=== PATIENT | male | born 1950 | race Caucasian/White ===

== ENCOUNTER 2020-05-10 22:17 | Inpatient (IN) | payer OTHER, BC ==
--- OUTSIDE RECORDS SUMMARY | 2020-05-10 22:19 | XMS REPORT | Continuity of Care Document ---
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) Male Active Problem 03/07/2020 Medica l hypogonadism Group (disorder) 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) Morbid obesity Active Problem 03/07/2020 M edical (disorder) Group Medications No Data Provided for This Section Allergies, Adverse Reactions, Alerts Substance Category Reaction Severity Reaction Status Date Comments S ource type Reported sulfa drugs Assertion Drug Active allergy Medical Group iodine Assertion Drug Active allergy Medical Group Immunizations No Data Provided for This Section Results Order Name Results Value Reference Date Interpretation Comments Kiana rce Range ENDOCRINOLO Testosterone 242 250 - 827 03/04 Result GY Comment: In Medical hypogonadal Group males, Testosterone, Total, LC/MS/MS,
is the recommended assay due to the diminished<br/ >accuracy of immunoassay at levels below 250 ng/dL.
Thi s test code (74230) must be collected in a
red-top tube with no gel.

Lab test performed by:
[facility]
[address]
[facility] [place] [address]<br/ >Nuha Green SPECIAL PSA 0.8 < OR = 4.0 03/04 Result MH CHEMISTRY ng/mL Comment: The Medical total PSA Group value from this assay system is
standardi zed against the WHO standard. The test
result will be approximately 20% lower when compared
to the equimolar-hugo dardized total PSA ([place]). Comparison of serial PSA results should be
interpret ed with this fact in mind.

This test was performed using the Siemens
chemilumi nescent method. Values obtained from
different assay methods cannot be used
inter changeably. PSA levels, regardless of
value, should not be interpreted as absolute
e vidence of the presence or absence of disease.

Lab test performed by:
[facility]
[address] [place] [address]
[place] [address]<br/ >Nuha Green URINE AND POC UA Color Yellow Yellow 03/04 STOOL *NA* Medical (03/04/20 3:51 PM) Group URINE AND POC UA Clear Clear 03/04 STOOL Turbidity *NA* Medical (03/04/20 3:51 PM) Group URINE AND POC UA SG 1.015 <=1.030 03/04 MH STOOL Medical Group URINE AND POC UA pH 7.0 5.0 - 8.0 03/04 MH STOOL Medical Group URINE AND POC UA Prot Negative Negative 03/04 STOOL mg/dL mg/dL Medical Group URINE AND POC UA Glu Negative Negative 03/04 STOOL mg/dL mg/dL Medical Group URINE AND POC UA Ket Negative Negative 03/04 STOOL mg/dL mg/dL Medical Group URINE AND POC UA Bili Negative Negative 03/04 MH STOOL *NA* Medical (03/04/20 3:51 PM) Group URINE AND POC UA Bld Negative Negative 03/04 STOOL *NA* Medical (03/04/20 3:51 PM) Group URINE AND POC UA Uro 0.2 0.1 - 1.0 03/04 MH STOOL Medical Group URINE AND POC UA Nit Negative Negative 03/04 STOOL *NA* /2020 Medical (03/04/20 3:51 PM) Group URINE AND POC UA Negative Negative 03/04 STOOL LeukEst * Medical (03/04/20 3:51 PM) Group URINE AND POC UA Color Yellow Yellow 03/06 STOOL Medical (03/06/19 5:24 PM) Group URINE AND POC UA Clear Clear 03/06 STOOL Turbidity * Medical (03/06/19 5:24 PM) Group URINE AND POC UA SG 1.015 <=1.030 03/06 STOOL Medical Group URINE AND POC UA pH 7.0 5.0 - 8.0 03/06 STOOL Medical Group URINE AND POC UA Prot Negative Negative 03/06 STOOL mg/dL mg/dL Medical Group URINE AND POC UA Glu Negative Negative 03/06 STOOL mg/dL mg/dL Medical Group URINE AND POC UA Ket Negative Negative 03/06 STOOL mg/dL mg/dL Medical Group URINE AND POC UA Bili Negative Negative 03/06 STOOL * Medical (03/06/19 5:24 PM) Group URINE AND POC UA Bld Negative Negative 03/06 STOOL * Medical (03/06/19 5:24 PM) Group URINE AND POC UA Uro 0.2 0.1 - 1.0 03/06 STOOL Medical Group URINE AND POC UA Nit Negative Negative 03/06 STOOL * Medical (03/06/19 5:24 PM) Group URINE AND POC UA Negative Negative 03/06 STOOL LeukEst * Medical (03/06/19 5:24 PM) Group Pathology Reports No Data Provided for This Section Diagnostic Reports No Data Provided for This Section Consultation Notes No Data Provided for This Section Discharge Summaries No Data Provided for This Section History and Physicals No Data Provided for This Section Vital Signs Vital Sign Value Date Comments Source Systolic (mm Hg) 124 03/04/2020 Medical Group Diastolic (mm Hg) 80 03/04/2020 Medical Group Height 187.96 cm 03/04/2020 Medical Grou p Weight 98.892 03/04/2020 Medical Grou p BMI Calculated 27.99 03/04/2020 Medical Gr oup Height 183.64 cm 03/06/2019 Medical Grou p Weight 100.909 03/06/2019 Medical Grou p BMI Calculated 29.92 03/06/2019 Medical Gr oup Systolic (mm Hg) 140 03/06/2019 Medical Group Diastolic (mm Hg) 70 03/06/2019 Medical Group Height 185.42 cm 03/08/2018 Medical Grou p BMI Calculated 28.43 03/08/2018 Medical Gr oup Weight 97.727 03/08/2018 Medical Grou p Systolic (mm Hg) 110 03/08/2018 Medical Group Diastolic (mm Hg) 70 03/08/2018 Medical Group Encounters Location Location Encounter Encounter Reason Attending ADM MD Stat us Source Details Type Number For Provider Date Date Visit Outpatient [id number] PAM 01/12 [facility] [place] Outpatient [id number] 09/06 [facility] [place] Outpatient [id number] 02/28 [facility] [facility] [id number] 03/08 [facility] Outpatient [id number] 03/08 [facility] Outpatient [id number] 03/06 [facility] Outpatient [id number] 03/06 [facility] Outpatient [id number] 03/04 [facility] Outpatient [id number] Pam 03/04 03/05 [facility] Outpatient [id number] 03/03 [facility] [place] Procedures Procedure Code Date Perfomer [place] [address] 03/04/2020 Medical post-voiding residual Arnav up urine and/or bladder capacity by ultrasound, non-imaging Colonoscopy<sup>1</paredes [id number] 03/06/2016 normal per Medical p> pt. Group Excision of melanoma [id number] M edical Group Right heart [id number] Medical catheterization Group Assessment and Plan No Data Provided for This Section Plan of Care No Data Provided for This Section Social History Social History Date Source Social History TypeResponse 03/04/2020 Medical G mitch Smoking Status Never smoker; Exposure to Tobacco Smoke None; Cigarette Smoking Last 365 Days No; Reg Smoking Cessation Counseling No entered on: 03/04/20 Family History No Data Provided for This Section Advance Directives No Data Provided for This Section Functional Status No Data Provided for This Section
--- OUTSIDE RECORDS SUMMARY | 2020-05-10 22:19 | XMS REPORT | Summary of Care ---
:1950 Author Organization [facility] Address [address] [place] [address]- Encounter HQ Tiffani_qiana(BERNARDO) [id number] Date(s): 03/04/20 - 03/04/20 [facility] [address] [place], [place] [address]- [phone] Discharge Disposition: Home or Self Care Attending Physician: Keenan Orosco MD Referring Physician: Keenan Orosco MD Vital Signs Most recent to oldest [Reference Range]: 1 Height 187.96 cm (03/04/20 3:54 PM) Blood Pressure [90-140/60-90 mmHg] 124/80 mmHg (03/04/20 3:54 PM) Weight 98.892 kg (03/04/20 3:54 PM) Body Mass Index 27.99 m2 (03/04/20 3:54 PM) Problem List Condition Effective Dates Status Health Status Informant Frozen shoulder(Confirmed) Resolved BPH with urinary Active obstruction(Confirmed) Follow up(Confirmed) Active High blood pressure(Confirmed) Resolved Erectile dysfunction(Confirmed) Active Male hypogonadism(Confirmed) Active Cancer(Confirmed) Resolved Morbid obesity(Confirmed) Active Allergies, Adverse Reactions, Alerts Substance Reaction Severity Status sulfa drugs Active iodine Active Medications No Known Medications Results Most recent to oldest [Reference Range]: 1 PSA [< OR = 4.0 ng/mL] 0.8 ng/mL 1 *N* (03/04/20 4:36 PM) Testosterone Tot [250-827 ng/dL] 242 ng/dL 2 *LOW* (03/04/20 4:36 PM) POC UA Bili [Negative] Negative *NA* (03/04/20 3:51 PM) POC UA Bld [Negative] Negative *NA* (03/04/20 3:51 PM) POC UA Color [Yellow] Yellow *NA* (03/04/20 3:51 PM) POC UA Glu [Negative mg/dL] Negative mg/dL *NA* (03/04/20 3:51 PM) POC UA Ket [Negative mg/dL] Negative mg/dL *NA* (03/04/20 3:51 PM) POC UA LeukEst [Negative] Negative *NA* (03/04/20 3:51 PM) POC UA Nit [Negative] Negative *NA* (03/04/20 3:51 PM) POC UA pH [5.0-8.0] 7.0 (03/04/20 3:51 PM) POC UA Prot [Negative mg/dL] Negative mg/dL *NA* (03/04/20 3:51 PM) POC UA SG [<=1.030] 1.015 (03/04/20 3:51 PM) POC UA Turbidity [Clear] Clear *NA* (03/04/20 3:51 PM) POC UA Uro [0.1-1.0 EU/dL] 0.2 EU/dL (03/04/20 3:51 PM) 1Result Comment: The total PSA value from this assay system is standardized against the WHO standard. The test result will be approximately 20% lower when compared to the equimolar-standardized total PSA ([place]). Comparison of serial PSA results should be interpreted with this fact in mind. This test was performed using the Siemens chemiluminescent method. Values obtained from different assay methods cannot be used interchangeably. PSA levels, regardless of value, should not be interpreted as absolute evidence of the presence or absence of disease. Lab test performed by: [facility] [address] [place] [address] Nuha Green2Result Comment: In hypogonadal males, Testosterone, Total, LC/MS/MS, is the recommended assay due to the diminished accuracy of immunoassay at levels below 250 ng/dL. This test code (43633) must be collected in a red-top tube with no gel. Lab test performed by: [facility] [address] [place] [address] Nuha Green Immunizations No data available for this section Procedures Procedure Date Related Diagnosis Body Site Status Measurement of post-voiding residual 03/04/20 Completed urine and/or bladder capacity by ultrasound, non-imaging Colonoscopy1 03/06/16 Completed Excision of melanoma Complet ed Right heart catheterization Completed 1normal per pt. Social History Social History Type Response Smoking Status Never smoker; Exposure to To bacco Smoke None; Cigarette Smoking Last 365 Days No; Reg Smoking Cessation Counseling No entered on: 03/04/20 Assessment and Plan No data available for this section
--- OUTSIDE RECORDS SUMMARY | 2020-05-10 22:20 | XMS REPORT | Continuity of Care Document ---
:1950 Author Organization [facility] Address [address] [place] [address] Care Team Providers Name Role Phone Henrique Orosco Attending Clinician Payers Payer Name Policy Type Policy Number Effective Date Expiration Date S ource Problems Condition Condition Condition Status Onset Resolution Last Treating Co mments Source Name Details Category Date Date Treatment Clinician Date Adhesive Problem Resolve 2020-03-07 Me moria capsulitis d 00:54:23 l of Adhesive Jake n shoulder capsulitis (disorder) of shoulder (disorder) Resolved Problem 03/07/2020 Medical Group Hypertensi Problem Resolve 2020-03-07 Memoria ve d 00:54:23 l disorder, [facility] systemic Hypertensi arterial ve (disorder) disorder, systemic arterial (disorder) Resolved Problem 03/07/2020 Medical Group Malignant Problem Resolve 2020-03-07 M emoria neoplastic d 00:54:23 l disease Rickman (disorder) Malignant neoplastic disease (disorder) Resolved Problem 03/07/2020 Medical Group Benign Problem Active 2020-03-07 Memor ia prostatic 00:54:23 l hypertroph Benign Herm magaly with prostatic outflow hypertroph obstructio with n outflow (disorder) obstructio n (disorder) Active Problem 03/07/2020 Medical Group Follow-up Problem Active 2020-03-07 Me moria status 00:54:23 l (finding) Thad Follow-up status (finding) Active Problem 03/07/2020 [facility] Group Impotence Problem Active 2020-03-07 Me moria of organic 00:54:23 l origin Rickman (disorder) Impotence of organic origin (disorder) Active Problem 03/07/2020 Medical Group Male Problem Active 2020-03-07 Memor ia hypogonadi 00:54:23 l sm Male Rickman (disorder) hypogonadi sm (disorder) Active Problem 03/07/2020 Medical Group Morbid Problem Active 2020-03-07 Memor ia obesity 00:54:23 l (disorder) Morbid Herm magaly obesity (disorder) Active Problem 03/07/2020 Medical Group Allergies, Adverse Reactions, Alerts Allergy Allergy Status Severity Reaction(s) Onset Inactive Treating Comm ents Source Name Type Date Date Clinician IODINE DA Active U 2001-0 [facility] 00:[facility]: [address] IODINE DA Active U 2001-0 [facility]14 [facility] 00:00: [address] No Known DA Active U 2001-0 [facility] Other 09[facility]14 [facility] Allergie 00:00: [address] SHRIMP DA Active U 2001-0 [facility] -[facility] [place] 00:00: [address] SULFA DA Active U 2001-0 [facility] DRUGS [facility]14 [facility] 00:00: [address] sulfa sulfa Active Memoria drugs drugs l [place] iodine iodine Active Memoria l Thad Social History Smoking Status Start Date Stop Date Source Social History [facility] Medications This patient has no known medications. Vital Signs Vital Name Observation Time Observation Value Comments Source Systolic (mm Hg) 2020-03-04 21:54:00 Livan rial [place] Diastolic (mm Hg) 2020-03-04 21:54:00 Mem orial [place] Height 2020-03-04 21:54:00 187.96 cm [facility] Weight 2020-03-04 21:54:00 [facility] BMI Calculated 2020-03-04 21:54:00 Memori al Thad Height 2019-03-06 19:04:00 183.64 cm [facility] Weight 2019-03-06 19:04:00 [facility] BMI Calculated 2019-03-06 19:04:00 Memori al Thad Systolic (mm Hg) 2019-03-06 19:04:00 Livan rial Thad Diastolic (mm Hg) 2019-03-06 19:04:00 Mem orial [place] Height 2018-03-08 22:03:00 185.42 cm [facility] BMI Calculated 2018-03-08 22:03:00 Memori al [place] Weight 2018-03-08 22:03:00 [facility] Systolic (mm Hg) 2018-03-08 22:03:00 Livan ewing Thad Diastolic (mm Hg) 2018-03-08 22:03:00 Mem orial Thad Procedures Procedure Date / Time Performing Clinician Source Performed Measurement of post-voiding 2020-03-04 21:49:00 [facility] Thad residual urine and/or bladder capacity by ultrasound, non-imaging Colonoscopy<sup>1</sup> 2016-03-06 05:00:00 Livansamuel ewing Thad Excision of melanoma [facility] rmann Right heart catheterization Livansamuel ewing Thad Encounters Start End Encounter Admission Attending Care Care Encounter Source Date/Time Date/Time Type Type Clinicians Facility Department ID 2020-03-04 2020-03-04 [address] C Orosco [facility] [id number] 15:15:00 23:59:59 Keenan Duenas 05 2019-03-06 2019-03-06 Outpatient Ana Luisa [facility] [id number] 15:15:00 23:59:59 Keenan Duenas 04 2018-03-08 2018-03-08 Outpatient Ana Luisa [facility] [id number] 15:30:00 23:59:59 Keenan Duenas 03 Results Test Description Test Time Test Comments Results Result Sourc e Comments ENDOCRINOLOGY 2020-03-04 242 [facility] 22:36:00 [place] SPECIAL CHEMISTRY 2020-03-04 0.8 Memoria l 22:36:00 [place] URINE AND STOOL 2020-03-04 Yellow [facility] 21:51:00 *NA*(03/04/20 Rickman 3:51 PM) URINE AND STOOL 2020-03-04 Clear [facility] 21:51:00 *NA*(03/04/20 Thad 3:51 PM) URINE AND STOOL 2020-03-04 21:51:00 Test Item Value Reference Range Interpretation Comme nts POC UA SG (test code = POC UA SG) 1.015 1 [facility] HermannURINE AND [id number] 21:51:00 Test Item Value Reference Range Interpretation Comments POC UA pH (test code = POC UA pH) 7.0 1 5.0-8.0 [facility] [id number] 21:51:00Negative *NA*(03/04/20 3:51 PM) [facility] [id number] 21:51:00Negative *NA*(03/04/20 3:51 PM) [facility] [id number] 21:51:000.2[facility] [id number] 21:51:00Negative *NA*(03/04/20 3:51 PM)[facility] [id number] 21:51:00Negative *NA*(03/04/20 3:51 PM)[facility] CT MAXIFAC W/O [id number] 16:29:00 Patient Name: NUHA ZUÑIGA JR Unit No: [id number] EXAMS: CPT CODE: [id number] CT MAXIFAC W/O CONTRAST 28649 Location: T 18 CT of the sinuses, 05/20/19 TECHNIQUE: CT examination of the sinuses was performed obtaining 0.63 mm axial images on a helical scanner without IV contrast. Both coronal and sagittal 2D reformatted images acquired on the CT workstation using MPR software. Scanning conducted in the axial plane contiguously from above frontal sinuses through oropharynx . The examination was performed on an updated helical CT scanning using low-dose radiation technique. Automatic exposure control technique was utilized to reduce radiation dose. CLINICAL HISTORY: Acute recurrent pansinusitis. COMPARISON EXAMS: None of the sinuses FINDINGS: FRONTAL SINUSES: Hyperplasia is seen with aeration of the rei kem. There is a small degree ofopacification in the left frontal sinus seen on image #110 and 109 of series 2.. There is also a small degree in the right frontal sinus on image #102 through 104 on series 2. Patency ofboth frontal ethmoidal recesses. ETHMOID AIR CELLS: Normal development is identified with very small degree of opacification right anterior chamber. There is also a small degree all of opacification having a bubbly appearance of both posterior chambers. This is best seen on image #85 of series 2. It is noted left more so than right. The fovea ethmoidalis is intact. The sphenoethmoidal recesses are patent. MAXILLARY SINUSES: Normal development is seen without significant opacification. Do not see any compromise of either leg. SPHENOID SINUSES: Hyperplasia is seen with aeration of the right optic strut . No significant opacification. Nasal cavity/nasopharyngeal region: Do not see any compromise in drainage of the nasal cavity. The nasal septum is midline. No abnormality is seen in the nasopharyngeal region. IMPRESSION: MEME Palumbo NAME: NUHA ZUÑIGA JR [id number] PHYS: BRIANNA. [place] [address] : 1950 AGE: 69 SEX: M LOC: JUDY PHONE #: [phone] EXAM DATE: 05/20/2019 STATUS: REG CLI FAX#: [phone] RAD #: [id number] D/C DT PAGE 1Signed Report (CONTINUED) Patient Name: NUHA ZUÑIGA JR Unit No: [id number] EXAMS: CPT CODE: [id number] CT MAXIFAC W/O CONTRAST 24727 <Continued> Small degree of ethmoid air cell opacification identified and involving both frontal sinuses posteriorly and inferiorly with patency of the frontal and sphenoethmoidal recesses No aggressive bony destruction. No compromise of the ostiomeatal units No significant compromise in terms of drainage of the nasal cavity at 1629 Reported and signed by: Josette Crystal MD CC: Stuart Blackburn Technologist: Colin Staton; Bernarda Ruiz, RT(R) CTDI: DLP: Trnscrpt: 05/20/2019 (1629) [email or web address] [facility] NAME: NUHA ZUÑIGA JR [id number] PHYS: BRIANNA. [place] [address] : 1950 AGE: 69 SEX: M LOC: JUDY PHONE #: [phone] EXAM DATE: 05/20/2019 STATUS: REG CLI FAX #: [phone] RAD #: [id number] D/C DT PAGE 2 Signed Report Patient Name: NUHA ZUÑIGA JR Unit No: [id number] EXAMS: CPT CODE: [id number] CT MAXIFAC W/OCONTRAST 99245 <Continued> Orig Print D/T: S: 05/20/2019 (1632) [facility] NAME: NUHA ZUÑIGA JR [id number] [address] PHYS: BRIANNA.Sue - [place] [address] : 1950 AGE: 69 SEX: M LOC: JUDY PHONE #: [phone] EXAM DATE: 05/20/2019 STATUS: REG CLI FAX #: [phone] RAD #: [id number] D/C DT PAGE 3 Signed ReportURINE AND [id number] 23:24:00Yellow *NA*(03/06/19 5:24 PM)[facility] [id number] 23:24:00Clear *NA*(03/06/19 5:24 PM)[facility] [id number] 23:24:00 Test Item Value Reference Range Interpretation Comments POC UA SG (test code = POC UA SG) 1.015 1 [facility] [id number] 23:24:00 Test Item Value Reference Range Interpretation Comments POC UA pH (test code = POC UA pH) 7.0 1 5.0-8.0 [facility] [id number] 23:24:00Negative *NA*(03/06/19 5:24 PM) [facility] [id number] 23:24:00Negative *NA*(03/06/19 5:24 PM) [facility] [id number] 23:24:000.2[facility] [id number] 23:24:00Negative *NA*(03/06/19 5:24 PM)[facility] [id number] 23:24:00Negative *NA*(03/06/19 5:24 PM)[facility]- XR CHEST 2 [id number] 18:44:00 Patient Name: NUHA ZUÑIGA JR Unit No: [id number] EXAMS: CPT CODE: [id number] XR CHEST 2 V 05254 Location: H28 EXAM: - XR CHEST 2 V HISTORY: PNEUM ONIA, COUGH, WHEEZING COMPARISON: None FINDINGS: Calcifiedgranulomas in the upper lobes. Lungs are otherwise clear. No pleural effusion or pneumothorax. The cardiac silhouette is within normal limits. No acute osseous abnormalities. IMPRESSION: No radiographic evidence of acute cardiopulmonary abnormality. at 1844 Reported and signed by: Marlon Sparks CC: Stuart Blackburn Technologist: Lesley Kaur (RT) Transcrpt Date/Tm/Trnsp: 11/13/2018 (184) [email or web address] Orig Print D/T: S: 11/13/2018 (1846) [facility] [place] NAME: NUHA ZUÑIGA JR [id number] [address] PHYS: BRIANNA. [place] [address] : 1950 AGE: 68 SEX: M LOC: [facility] PHONE #: [phone] EXAM DATE: 11/13/2018 STATUS: REG CLI FAX #: [phone] RADIOLOGY NO: PAGE 1 Signed Report- XR CHEST 2 [id number] 18:44:00 Patient Name: NUHA ZUÑIGA Unit No: [id number] EXAMS: CPT CODE: [id number] XR CHEST 2 V 99955 Location: H28 EXAM: - XR CHEST 2 V HISTORY: PNEUMONIA, COUGH, WHEEZING COMPARISON: None FINDINGS: Calcifiedgranulomas in the upper lobes. Lungs are otherwise clear. No pleural effusion or pneumothorax. The cardiac silhouette is within normal limits. No acute osseous abnormalities. IMPRESSION: No radiographic evidence of acute cardiopulmonary abnormality. at 1844 Reported and signed by: Marlon Sparks CC: Stuart Blackburn Technologist: Lesley Kaur (RT) Transcrpt Date/Tm/Trnsp: 11/13/2018 (184) [email or web address] Orig Print D/T: S: 11/13/2018 (1846) [facility] [place] NAME: NUHA ZUÑIGA [id number] [address] PHYS: BRIANNA. [place] [address] : 1950 AGE: 68 SEX: M LOC: BEV PHONE #: [phone] EXAM DATE: 11/13/2018 STATUS: LEEANNA CANAS FAX #: [phone] RADIOLOGY NO: [id number] PAGE 1 Signed Report
[2020-05-10] MEDS ORDERED: ONDANSETRON 4 MG/2 ML VIAL ONE (23:50)
[2020-05-10] MEDS ORDERED: MORPHINE 2 MG/ML SYR ONE (23:50)
[2020-05-11 00:22] LABS: Basophils % 1.3 % (0-1.3); Lymphocytes % 16.1 % (15.3-44.8); MPV 8.2 fL (7.6-11.3); RBC Red Blood Cell Count 4.77 M/uL (4.33-5.43)
[2020-05-11 00:26] LABS: Protime INR 1.19
[2020-05-11 00:36] LABS: Albumin 3.8 g/dL (3.4-5.0); Bilirubin Direct 0.2 mg/dL (0-0.2); Bilirubin Total 0.8 mg/dL (0.2-1.0); Potassium 3.8 mmol/L (3.5-5.1); Protein, Total 7.4 g/dL (6.4-8.2)
--- NOTE | 2020-05-11 01:22 | ER ---
Nurse's Notes [facility] Name: Ariel Albrecht Jr Age: 70 yrs Sex: Male : 1950 Arrival Date: 05/10/2020 Time: 22:21 Bed 20 Private MD: Diagnosis: Right Lower Extremity Cellulitis-Failed Outpatient Treatment Presentation: 05/10 22:44 Chief complaint: Patient states: Had a fall on 05/02/20, large abrasions to right lower lp1 leg; being treated with Keflex and Mupirocin ointment by PCP; Reports pain and redness to site increasing; Denies fever. Coronavirus screen: Client denies travel out of the [place] in the last 14 days. At this time, the client does not indicate any symptoms associated with coronavirus-19. Ebola Screen: No symptoms or risks identified at this time. Risk Assessment: Do you want to hurt yourself or someone else? Patient reports no desire to harm self or others. Onset of symptoms was May 10, 2020. 22:44 Method Of Arrival: Ambulatory lp1 22:44 Acuity: [place] 3 lp1 22:44 Initial Sepsis Screen: Does the patient meet any 2 criteria? No. Patient's initial lp1 sepsis screen is negative. Does the patient have a suspected source of infection? No. Patient's initial sepsis screen is negative. Historical: - Allergies: 22:49 Iodine; lp1 - Home Meds: 22:57 Diovan HCT 80-12.5 mg Oral tab 1 tab once daily [Active]; Norvasc 2.5 mg Oral tab 1 tab lp1 once daily [Active]; Doxycycline Oral [Active]; atorvastatin 10 mg oral tab 1 tab once daily [Active]; - PMHx: 22:49 Blephritis; Skin cancer on nose- receiving treatment; lp1 - PSHx: 22:49 None; lp1 - Immunization history:: Adult Immunizations up to date. - Social history:: Smoking status: Patient denies any tobacco usage or history of. Screenin:58 Abuse screen: Denies threats or abuse. Denies injuries from another. Nutritional lp1 screening: No deficits noted. Tuberculosis screening: No symptoms or risk factors identified. Fall Risk None identified. Assessment: 23:10 General: Appears in no apparent distress. comfortable, Behavior is calm, cooperative, rr5 appropriate for age. Pain: Complains of pain in right evans Pain radiates to right leg Quality of pain is described as aching, Pain began gradually, Is intermittent. Neuro: Level of Consciousness is awake, alert, obeys commands, Oriented to person, place, time, situation. Cardiovascular: Capillary refill < 3 seconds Patient's skin is warm and dry. Respiratory: Airway is patent Respiratory effort is even, unlabored, Respiratory pattern is regular, symmetrical. GI: No signs and/or symptoms were reported involving the gastrointestinal system. : No signs and/or symptoms were reported regarding the genitourinary system. EENT: No signs and/or symptoms were reported regarding the EENT system. Derm: Skin is healthy with good turgor, Skin temperature is warm Wound noted right evans Wound is dry yellowish discharge redness around the wound and war warm to touch noted. 23:10 Musculoskeletal: Capillary refill < 3 seconds. rr5 Vital Signs: 22:44 BP 163 / 73; Pulse 73; Resp 18; Temp 98.6(TE); Pulse Ox 100% on R/A; Weight 99.34 kg lp1 (R); Height 6 ft. 3 in. (190.50 cm); Pain 4/10; 22:44 Body Mass Index 27.37 (99.34 kg, 190.50 cm) lp1 ED Course: 22:21 Patient arrived in ED. cf2 22:47 Triage completed. lp1 22:50 Arm band placed on right wrist. lp1 22:54 Navid Joy, RN is Primary Nurse. rr5 23:13 Patient has correct armband on for positive identification. Placed in gown. Bed in low rr5 position. Call light in reach. Pulse ox on. NIBP on. 23:14 Kevin Adams MD is Attending Physician. mh7 23:50 Inserted saline lock: 20 gauge in right hand, using aseptic technique. Blood collected. rr5 23:52 Tib Fib Right XRAY In Process Unspecified. EDMS 05/11 01:20 Shanae Hirsch MD is Hospitalizing Provider. mh7 Administered Medications: 05/09 23:50 Drug: Zofran (Ondansetron) 4 mg Route: IVP; Site: right hand; rr5 05/10 23:52 Drug: morphine 2 mg {Note: rass 0.} Route: IVP; Site: right hand; rr5 05/11 02:19 Drug: vancoMYCIN 1 grams Route: IVPB; Infused Over: 2 hrs; Site: right hand; lp1 Outcome: 01:22 Decision to Hospitalize by Provider. [facility] 16:13 Patient left the ED. ph Signatures: Dispatcher [employer] EDMS Veronika Torres RN RN lp1 Nisa Cueva RN RN Navid Joy RN RN rr5 Thuy Salamanca 2 Kevin Adams MD MD 7 Corrections: (The following items were deleted from the chart) 05/10 22:50 22:44 BP 163 / 73; Pulse 73bpm; Resp 18bpm; Pulse Ox 100% RA; Temp 98.6F Temporal; Pain lp1 08/08; lp1
--- NOTE | 2020-05-11 01:23 | EDPHYS ---
Physician Documentation [facility] Name: Ariel Albrecht Jr Age: 70 yrs Sex: Male : 1950 Arrival Date: 05/10/2020 Time: 22:21 Bed 20 Private MD: ED Physician Kevin Adams HPI: 05/10 23:26 This 70 yrs old Male presents to ER via Ambulatory with complaints of leg mh7 infected. 23:26 The patient presents with an injury. mh7 23:27 The patient presents with cellulitis of the right evans. Description: erythematous, mh7 warm. Onset: The symptoms/episode began/occurred 1 week(s) ago. Possible cause(s): Accidentally scraped leg against furniture during a fall. Associated signs and symptoms: Pertinent positives: erythema, swelling, Pain, Pertinent negatives: discharge, drainage, foreign body sensation, fever, headache, nausea, shortness of breath, vomiting. Modifying factors: the symptoms are alleviated by nothing, the symptoms are aggravated by nothing. Severity of symptoms: At their worst the symptoms were moderate, yesterday, in the emergency department the symptoms are unchanged. Patient has been taking Keflex for 5 days but getting worse.. Historical: - Allergies: 22:49 Iodine; lp1 - Home Meds: 22:57 Diovan HCT 80-12.5 mg Oral tab 1 tab once daily [Active]; Norvasc 2.5 mg Oral tab 1 tab lp1 once daily [Active]; Doxycycline Oral [Active]; atorvastatin 10 mg oral tab 1 tab once daily [Active]; - PMHx: 22:49 Blephritis; Skin cancer on nose- receiving treatment; lp1 - PSHx: 22:49 None; lp1 - Immunization history:: Adult Immunizations up to date. - Social history:: Smoking status: Patient denies any tobacco usage or history of. ROS: 23:27 Constitutional: Negative for fever, chills, and weight loss, Eyes: Negative for injury, mh7 pain, redness, and discharge, ENT: Negative for injury, pain, and discharge, Neck: Negative for injury, pain, and swelling, Cardiovascular: Negative for chest pain, palpitations, and edema, Respiratory: Negative for shortness of breath, cough, wheezing, and pleuritic chest pain, Abdomen/GI: Negative for abdominal pain, nausea, vomiting, diarrhea, and constipation, Back: Negative for injury and pain, : Negative for injury, bleeding, discharge, and swelling, Neuro: Negative for headache, weakness, numbness, tingling, and seizure, Psych: Negative for depression, anxiety, suicide ideation, homicidal ideation, and hallucinations, Allergy/Immunology: Negative for hives, rash, and allergies, Endocrine: Negative for neck swelling, polydipsia, polyuria, polyphagia, and marked weight changes, Hematologic/Lymphatic: Negative for swollen nodes, abnormal bleeding, and unusual bruising. Exam: 23:27 Constitutional: This is a well developed, well nourished patient who is awake, alert, mh7 and in no acute distress. Head/Face: Normocephalic, atraumatic. Eyes: Pupils equal round and reactive to light, extra-ocular motions intact. Lids and lashes normal. Conjunctiva and sclera are non-icteric and not injected. Cornea within normal limits. Periorbital areas with no swelling, redness, or edema. Neck: Trachea midline, no thyromegaly or masses palpated, and no cervical lymphadenopathy. Supple, full range of motion without nuchal rigidity, or vertebral point tenderness. No Meningismus. Chest/axilla: Normal chest wall appearance and motion. Nontender with no deformity. No lesions are appreciated. Cardiovascular: Regular rate and rhythm with a normal S1 and S2. No gallops, murmurs, or rubs. Normal PMI, no JVD. No pulse deficits. Respiratory: Lungs have equal breath sounds bilaterally, clear to auscultation and percussion. No rales, rhonchi or wheezes noted. No increased work of breathing, no retractions or nasal flaring. Abdomen/GI: Soft, non-tender, with normal bowel sounds. No distension or tympany. No guarding or rebound. No evidence of tenderness throughout. Back: No spinal tenderness. No costovertebral tenderness. Full range of motion. 23:27 Neuro: Awake and alert, GCS 15, oriented to person, place, time, and situation. Cranial nerves II-XII grossly intact. Motor strength 5/5 in all extremities. Sensory grossly intact. Cerebellar exam normal. Normal gait. Psych: Awake, alert, with orientation to person, place and time. Behavior, mood, and affect are within normal limits. 23:27 Musculoskeletal/extremity: Extremities: noted in the right evans: erythema, swelling, tenderness, ulcerated wound, ROM: intact in all extremities, Circulation is intact in all extremities. Pulses: are normal with no appreciated deficits, Perfusion: the patient is normally perfused throughout, Perfusion: the extremity is normally perfused throughout, Calf tenderness, is absent, Edema, is not appreciated, Sensation intact. Compartment Syndrome exam of affected extremity: is normal. no numbness, no tingling, no sensation deficit, no palor, no weak pulses, Joints: All joints appear normal with full range of motion. Weight bearing: able to fully bear weight, without difficulty, Tendon exam: specific tendon testing normal through active and passive range of motion Calves: are non-tender, have equal circumference. 23:27 Skin: cellulitis, that is moderate, confluent, on the right evans, injury, ulcerated wound. Vital Signs: 22:44 BP 163 / 73; Pulse 73; Resp 18; Temp 98.6(TE); Pulse Ox 100% on R/A; Weight 99.34 kg lp1 (R); Height 6 ft. 3 in. (190.50 cm); Pain 4/10; 22:44 Body Mass Index 27.37 (99.34 kg, 190.50 cm) lp1 MDM: 05/11 01:19 Differential diagnosis: abscess, cellulitis, Wound Infection. Data reviewed: vital [facility] signs, nurses notes, lab test result(s), CBC, electrolytes, urinalysis, radiologic studies, plain films. Data interpreted: Pulse oximetry: on room air is 100 %. Interpretation: normal. Counseling: I had a detailed discussion with the patient and/or guardian regarding: the historical points, exam findings, and any diagnostic results supporting the discharge/admit diagnosis, the presence of at least one elevated blood pressure reading (>120/80) during this emergency department visit, lab results, radiology results, the need for further work-up and treatment in the hospital. Response to treatment: the patient's symptoms have mildly improved after treatment. 01:22 Patient medically screened. [facility] 05/10 23:24 Order name: CBC with Diff; Complete Time: 00:58 [facility] 05/10 23:24 Order name: Basic Metabolic Panel; Complete Time: 00:58 [facility] 05/10 23:24 Order name: LFT's; Complete Time: 00:58 [facility] 05/10 23:24 Order name: Protime (+inr); Complete Time: 00:58 [facility] 05/10 23:24 Order name: Ptt, Activated; Complete Time: 00:58 [facility] 05/10 23:24 Order name: Blood Culture Adult (2) [facility] 05/10 23:24 Order name: Tib Fib Right XRAY [facility] 05/11 00:58 Order name: Lactate [facility] 05/11 00:58 Order name: Procalcitonin [facility] 05/11 01:44 Order name: COVID-19 [facility] 05/11 03:55 Order name: SARS-COV-2 RT PCR [facility] 05/11 11:14 Order name: US [facility] 05/11 00:00 Order name: IV Saline Lock; Complete Time: 00:01 rr5 Administered Medications: 05/09 23:50 Drug: Zofran (Ondansetron) 4 mg Route: IVP; Site: right hand; 5 05/10 23:52 Drug: morphine 2 mg {Note: rass 0.} Route: IVP; Site: right hand; 5 05/11 02:19 Drug: vancoMYCIN 1 grams Route: IVPB; Infused Over: 2 hrs; Site: right hand; lp1 Disposition: 05/11/20 01:22 Hospitalization ordered by Shanae Hirsch for Observation. Preliminary diagnosis is Right Lower Extremity Cellulitis-Failed Outpatient Treatment. - Bed requested for Telemetry/MedSurg (observation). - Status is Observation. ph - Condition is Stable. - Problem is an ongoing problem. - Symptoms have improved. Signatures: Dispatcher [employer] EDMD Arabella Clements Laura, RN RN lp1 Yno Dunlap, SUPERVISOR GROWER-C SUPERVISOR GROWER-Cla1 Nisa Cueva RN RN Loyda Martini, Navid Gonzalez RN, RN RN rr5 Kevin Adams MD MD 7 Corrections: (The following items were deleted from the chart) 02:03 01:22 Hospitalization Ordered by Shanae Hirsch MD for Observation. Preliminary [facility] diagnosis is Right Lower Extremity Cellulitis-Failed Outpatient Treatment. Bed requested for Telemetry/MedSurg (observation). Status is Observation. Condition is Stable. Problem is an ongoing problem. Symptoms have improved. [facility] 02:22 02:03 05/11/2020 01:22 Hospitalization Ordered by Shanae Hirsch MD for Observation. cg Preliminary diagnosis is Right Lower Extremity Cellulitis-Failed Outpatient Treatment. Bed requested for Telemetry/MedSurg (Inpatient). Status is Observation. Condition is Stable. Problem is an ongoing problem. Symptoms have improved. mh7 02:30 01:45 CORONAVIRUS ordered. EDMS EDMS 13:52 02:22 05/11/2020 01:22 Hospitalization Ordered by Shanae Hirsch MD for Observation. bd Preliminary diagnosis is Right Lower Extremity Cellulitis-Failed Outpatient Treatment. Bed requested for [facility] ER HOLD. Status is Observation. Condition is Stable. Problem is an ongoing problem. Symptoms have improved. cg 16:13 13:52 05/11/2020 01:22 Hospitalization Ordered by Shanae Hirsch MD for Observation. ph Preliminary diagnosis is Right Lower Extremity Cellulitis-Failed Outpatient Treatment. Bed requested for Telemetry/MedSurg (observation). Status is Observation. Condition is Stable. Problem is an ongoing problem. Symptoms have improved. bd
[2020-05-11] MEDS ORDERED: CEFEPIME/SWI 1gm 10 ML ONE ×2 (02:12→20:48)
[2020-05-11] MEDS ORDERED: VANCOMYCIN 1 GM/VIAL ONE (02:12)
[2020-05-11] MEDS ORDERED: NA CHLORIDE 0.9% 500 ML ONE (02:12)
--- NOTE | 2020-05-11 03:31 | P.HP ---
Certification for Inpatient Patient admitted to: Inpatient With expected LOS: >2 Midnights Patient will require the following post-hospital care: None Practitioner: I am a practitioner with admitting privileges, knowledge of patient current condition, hospital course, and medical plan of care. Services: Services provided to patient in accordance with Admission requirements found in Title 42 Section 412.3 of the Code of Federal Regulations <Yon Dunlap - Last Filed: 05/11/20 03:26> Patient History Date of Service: 05/11/20 Primary Care Provider: GRISELDA Reason for admission: Cellulitis right lower extremity History of Present Illness: 70-year-old male with history of hypertension, hyperlipidemia presents to the emergency department for cellulitis of the right lower extremity. Patient reports that it started out as an abrasion approximately 8 days prior and he has been taking Keflex at home. Patient reports that redness and inflammation getting worse rather than better at home and therefore presented to the emergency department. Patient was evaluated in the emergency department, labs remarkable x-ray of right lower extremity unremarkable, moderately large area of cellulitis to the right lower extremity with erythema, warmth noted. Patient also has history of skin cancer affecting his nose, currently receiving radiation treatment 5 days a week. - Past Medical/Surgical History -: Hypertension -: Hyperlipidemia -: Skin cancer Psychosocial/ Personal History: Patient is retired, lives with family - Family History Family History: Reviewed- Non-Contributory - Social History Smoking Status: Never smoker Alcohol use: No CD- Drugs: No Caffeine use: Yes Place of Residence: Home <Yon Dunlap - Last Filed: 05/11/20 03:26> Date of Service: 05/11/20 <Shanae Hirsch - Last Filed: 05/20/20 02:17> Review of Systems 10-point ROS is otherwise unremarkable Integumentary: Rash, As per HPI <Yon Dunlap - Last Filed: 05/11/20 03:26> Physical Examination - Physical Exam General: Alert, In no apparent distress HEENT: Atraumatic, PERRLA, Mucous membr. moist/pink Neck: Supple, 2+ carotid pulse no bruit, No LAD Respiratory: Clear to auscultation bilaterally, Normal air movement Cardiovascular: Regular rate/rhythm, Normal S1 S2 Gastrointestinal: Normal bowel sounds, No tenderness Musculoskeletal: Erythema, Tenderness, Warmth Integumentary: Tenderness/swelling, Erythema, Warmth Neurological: Normal gait, Normal speech, Normal strength at 5/5 x4 extr, Normal tone, Normal affect - Studies Laboratory Data (last 24 hrs) 05/10/20 23:50: PT 14.0 H, INR 1.19, APTT 32.1 05/10/20 23:50: Sodium 141, Potassium 3.8, BUN 19 H, Creatinine 0.85, Glucose 83, Total Bilirubin 0.8, AST 18, ALT 33, Alkaline Phosphatase 84 05/10/20 23:50: WBC 6.1, Hgb 12.9 L, Hct 40.0, Plt Count 279 <Yon Dunlap - Last Filed: 05/11/20 03:26> Assessment and Plan - Plan Assessment Cellulitis right lower extremity-failed outpatient therapy Hypertension Hyperlipidemia Skin cancer Plan Cellulitis right lower extremity-failed outpatient therapy: Continue with IV vancomycin, cefepime, blood cultures obtained. Anticipate clinical improvement next 48-72 hr. Will obtain ultrasound to rule out DVT of the right lower extremity. DVT prophylaxis with Lovenox. Hypertension: Obtain and continue home medications Hyperlipidemia: Obtain and continue home medications Skin cancer: Patient is radiation 5 days a week with local oncologist, can continue with this after discharge. Discharge Plan: Home Plan to discharge in: 72 Hours - Advance Directives Does patient have a Living Will: No Does patient have a Durable POA for Healthcare: No - Code Status/Comfort Care Code Status Assessed: Yes (Full code) Critical Care: No Time Spent Managing Pts Care (In Minutes): 55 <Yon Dunlap - Last Filed: 05/11/20 03:26> - Problems (Diagnosis) (1) Cellulitis of right lower extremity Status: Acute <Shanae Hirsch - Last Filed: 05/20/20 02:17> Date of Service: 05/11/20 Agree with events as above. Continue with plan of care as mentioned above. <Shanae Hirsch - Last Filed: 05/20/20 02:17>
[2020-05-11] MEDS ORDERED: VANCOMYCIN 1 GM in NA CHLORIDE 0.9% 500 ML IVPB SCH (04:31)
[2020-05-11] MEDS ORDERED: HYDROCODONE/APAP 5/325 MG TAB PO PRN (04:31)
[2020-05-11] MEDS ORDERED: ONDANSETRON 4 MG/2 ML VIAL IV PRN (04:31)
[2020-05-11] MEDS: NA CHLORIDE 0.9% 1,000 ML IV SCH ×2 (05:30→19:14)
[2020-05-11 06:15] VITALS: BMI 27.2
[2020-05-11] MEDS ORDERED: NA CHLORIDE 0.9% 1,000 ML ONE (06:33)
--- NOTE | 2020-05-11 08:15 | RAD REPORT ---
EXAM DESCRIPTION: RAD - Tib Fib Right - 05/10/2020 11:51 pm CLINICAL HISTORY: Right leg pain FINDINGS: No fracture is seen. No bony destructive lesion noted. Soft tissue swelling
[2020-05-11] MEDS: CEFEPIME/SWI 1gm 10 ML IV SCH ×2 (09:00→20:51)
[2020-05-11] MEDS ORDERED: POTASSIUM CL SA 10 MEQ TAB PO ONE ×3 (09:00→21:00)
[2020-05-11] MEDS ORDERED: INFLUENZA VACCINE (for 3y+) 0.5 ML DOSE IMVAC ONE (09:00)
[2020-05-11] MEDS ORDERED: CEFEPIME 1 GM/VIAL IV SCH (09:00)
[2020-05-11] MEDS: ENOXAPARIN 40 MG/0.4 ML SQ SCH (09:00)
[2020-05-11] MEDS ORDERED: ENOXAPARIN 40 MG/0.4 ML SQ ONE (09:21)
[2020-05-11] MEDS ORDERED: CEFAZOLIN/SWI 1gm 1 GM/10 ML SYR ONE (09:22)
--- NOTE | 2020-05-11 11:13 | RAD REPORT ---
EXAM DESCRIPTION: USExtremity Venous Uni Ltd05/11/2020 10:58 am CLINICAL HISTORY: Right leg pain and swelling. COMPARISON: None. FINDINGS: Right common femoral, superficial femoral, popliteal and right posterior tibial veins are compressible and demonstrate augmentation. Doppler demonstrates good flow. IMPRESSION: No evidence of deep venous thrombosis involving the right lower extremity.
[2020-05-11] MEDS: ACETAMINOPHEN 500 MG TAB PO PRN (12:30)
[2020-05-11] MEDS ORDERED: ACETAMINOPHEN 500 MG TAB ONE (12:53)
[2020-05-11] MEDS: VANCOMYCIN 1.75 GM in NA CHLORIDE 0.9% 500 ML IVPB SCH (14:18)
--- NOTE | 2020-05-11 15:53 | CON ---
History Of Present Illness: This is a 70-year-old male. I was consulted for right lower extremity c ellulitis. The patient last week had an accident while he was in his home office where a bamboo mat scraped his right leg after which he ended up going to his primary care doctor who gave him Bactroban , mupirocin, and Keflex. The patient continued to take these medications, but his pain worsened and after discussing with primary care, he ended up to the emergency room for the evaluation of his right leg cellulitis and wound. The patient denies any headache, nausea, vomiting, chest pain, abdominal pain, constipation, or diarrhea. Past Medical History: Hypertension, hyperlipidemia, skin cancer. Social History: Nonsmoker, nondrinker. Family History: Noncontributory. Medications: Cefepime. See MAR for other medications. Allergies: IODINE. Review of Systems: A 10-point review was performed. Physical Examination: General: This is a 70-year-old male, sitting in stretcher, not in any acute cardiopulmonary distress . Vital Signs: Temperature 97.9, pulse 60, respirations 18, blood pressure 135/70. HEENT: Unremarkable. Neck: Supple. Lungs: Clear to auscultation. Heart: S1, S2. Regular. Abdomen: Soft, nontender. Bowel sounds present. Extremities: Right leg with 2+ edema with erythematous changes noted all the way from ankle to knee region in the evans area. The patient also had scabs and some open lesions to the front of the right leg. Assessment And Plan: A 70-year-old male, otherwise in good health, coming in with right lower extrem ity cellulitis status post trauma from the home office equipment. The patient's lab values are andrey l as he has been on antibiotic for last 1 week, Keflex and mupirocin. We will recommend to keep leg elevated when possible and continue Bactroban and cefepime. Recommend to switch him to oral antibiot ic on discharge. Consider doing Cipro and doxycycline for total of 2 weeks. We will follow the mitch ent closely. The patient was also recommended to keep leg elevated and use Bactroban to the open wou nds or Xeroform to the area and continue nutritional support. We will follow the patient closely. Thank you Dr. Hirsch for consult. NF/MODL Voice ID: [id number] Report ID: [id number]
[2020-05-11] MEDS: ATORVASTATIN 10 MG TAB PO SCH (20:50)
[2020-05-11] MEDS: FUROSEMIDE 40 MG/4 ML VIAL IV SCH (20:50)
[2020-05-11] MEDS: HYDROCORTISONE SUC 100 MG INJ IV SCH (23:54)
[2020-05-12] MEDS: VANCOMYCIN 1.75 GM in NA CHLORIDE 0.9% 500 ML IVPB SCH ×2 (02:03→14:39)
[2020-05-12] MEDS: ACETAMINOPHEN 500 MG TAB PO PRN ×3 (04:16→21:06)
[2020-05-12] MEDS: HYDROCORTISONE SUC 100 MG INJ IV SCH (05:32)
[2020-05-12 05:45] LABS: Absolute Lymphocytes (CBC) 0.7 K/uL (0.7-4.9); Basophils % 0.7 % (0-1.3); Hematocrit 36.7 % (39.6-49.0); Lymphocytes % 9.2 % (15.3-44.8); MPV 7.9 fL (7.6-11.3); RBC Red Blood Cell Count 4.44 M/uL (4.33-5.43)
[2020-05-12 06:08] LABS: BUN Blood Urea Nitrogen 16 mg/dL (7-18); Bicarbonate 29 mmol/L (21-32); Glucose Level 134 mg/dL (74-106); Potassium 3.7 mmol/L (3.5-5.1); Sodium Level 140 mmol/L (136-145)
[2020-05-12] MEDS: NA CHLORIDE 0.9% 1,000 ML IV SCH (06:51)
[2020-05-12] MEDS: ENOXAPARIN 40 MG/0.4 ML SQ SCH (08:24)
[2020-05-12] MEDS: FUROSEMIDE 40 MG/4 ML VIAL IV SCH (08:24)
[2020-05-12 08:57] LABS: Blood Morphology Comment NOT SEEN (NOT SEEN); Platelet Estimate ADEQ; White Blood Cell Scan OK (OK)
[2020-05-12] MEDS ORDERED: POTASSIUM CL SA 10 MEQ TAB PO ONE (09:00)
--- NOTE | 2020-05-12 09:40 | P.PN ---
Subjective Date of Service: 05/11/20 Subjective: No new changes, No C/O voiced, Improving Review of Systems 10-point ROS is otherwise unremarkable Physical Examination - Vital Signs Temperature: 98.4 F Blood Pressure: 168/74 Pulse: 74 Respirations: 18 Pulse Ox (%): 94 - Physical Exam General: Alert, In no apparent distress, Oriented x3 Respiratory: Clear to auscultation bilaterally, Normal air movement Cardiovascular: Regular rate/rhythm, Normal S1 S2, No murmurs Gastrointestinal: Normal bowel sounds, Soft and benign, Non-distended, No tenderness Musculoskeletal: No clubbing, No swelling, No tenderness Neurological: Sensation intact, Cranial nerves 3-12 intact - Studies Medications List Reviewed: Yes Assessment & Plan - Problems (Diagnosis) (1) Cellulitis of right lower extremity Current Visit: Yes Status: Acute - Plan 1. Continue with IV antibiotic 2. Continue with local wound care 3. Wound care consultation/ID consultation 4. Gentle IV hydration 5. Monitor CBC 6. Strict blood sugar monitoring 7. Pain control 8. GI and DVT prophylaxis - Advance Directives Does patient have a Living Will: No Does patient have a Durable POA for Healthcare: No
[2020-05-12] MEDS: CEFEPIME/SWI 1gm 10 ML IV SCH (10:20)
[2020-05-12] MEDS ORDERED: FUROSEMIDE 40 MG/4 ML VIAL IV SCH (17:00)
[2020-05-12] MEDS: PIPER/TAZO/NS 3.375gm 3.375 GM/100 ML BAG IVPB SCH (18:08)
[2020-05-12] MEDS: ATORVASTATIN 10 MG TAB PO SCH (21:05)
[2020-05-13] MEDS: PIPER/TAZO/NS 3.375gm 3.375 GM/100 ML BAG IVPB SCH ×2 (00:39→09:00)
[2020-05-13] MEDS: VANCOMYCIN 1.75 GM in NA CHLORIDE 0.9% 500 ML IVPB SCH (02:30)
[2020-05-13 06:23] LABS: Absolute Lymphocytes (CBC) 1.4 K/uL (0.7-4.9); Hematocrit 38.1 % (39.6-49.0); Lymphocytes % 21.2 % (15.3-44.8); RBC Red Blood Cell Count 4.58 M/uL (4.33-5.43)
[2020-05-13 06:34] LABS: Potassium 3.4 mmol/L (3.5-5.1)
[2020-05-13] MEDS ORDERED: POTASSIUM CL SA 10 MEQ TAB PO ONE (09:00)
[2020-05-13] MEDS: ENOXAPARIN 40 MG/0.4 ML SQ SCH (09:01)
[2020-05-13] MEDS: ACETAMINOPHEN 500 MG TAB PO PRN ×2 (09:01→14:28)
[2020-05-13 09:55] VITALS: O2SAT 96
--- NOTE | 2020-05-13 10:04 | P.PN ---
Subjective Date of Service: 05/12/20 Subjective: No new changes, No C/O voiced, Improving Review of Systems 10-point ROS is otherwise unremarkable Physical Examination - Vital Signs Temperature: 98.2 F Blood Pressure: 138/66 Pulse: 60 Respirations: 20 Pulse Ox (%): 96 - Physical Exam General: Alert, In no apparent distress, Oriented x3 Respiratory: Clear to auscultation bilaterally, Normal air movement Cardiovascular: Regular rate/rhythm, Normal S1 S2, No murmurs Gastrointestinal: Normal bowel sounds, Soft and benign, Non-distended, No tenderness Musculoskeletal: Swelling, Erythema, Tenderness Integumentary: Tenderness/swelling, Erythema Neurological: Normal strength at 5/5 x4 extr, Sensation intact, Cranial nerves 3-12 intact Lymphatics: No axilla or inguinal lymphadenopathy - Studies Medications List Reviewed: Yes Assessment & Plan - Problems (Diagnosis) (1) Cellulitis of right lower extremity Current Visit: Yes Status: Acute - Plan Patient's clinical picture has improved. Anticipate discharge over the next 24- 48 hrs. 1. Continue with IV antibiotic times 24 more hrs 2. Continue with local wound care 3. Wound care consultation/ID consultation 4. Gentle IV hydration 5. Monitor CBC 6. Strict blood sugar monitoring 7. Pain control 8. GI and DVT prophylaxis Discharge Plan: Home Plan to discharge in: 24 Hours - Advance Directives Does patient have a Living Will: No Does patient have a Durable POA for Healthcare: No - Code Status/Comfort Care Code Status Assessed: Yes Code Status: Full Code Critical Care: No Time Spent Managing PTS Care (In Minutes): 35
[2020-05-13] MEDS: VANCOMYCIN 1.5 GM in NA CHLORIDE 0.9% 500 ML IVPB SCH ×2 (12:44→15:00)
--- NOTE | 2020-05-13 13:52 | PN ---
Subjective: The patient is sitting in easy chair, not in any acute distress. Objective: Vital Signs: Temperature 97.7, pulse 58, respirations 20, blood pressure 117/79. Lungs: Clear to auscultation. Heart: S1 and S2 regular. Abdomen: Soft and nontender. Bowel sounds present. Extremities: 2+ edema to the right leg. Left leg trace edema. Laboratory Data: Shows WBC 6.5, hemoglobin 12.4, platelets are 265. Chemistry shows sodium 141, pot assium 3.4, chloride 104, bicarb 32, BUN 22, creatinine 0.9, glucose is 110. Assessment/plan: Right lower extremity cellulitis, status post traumatic injury to the right leg. B lood cultures are negative. The patient is currently being treated with Zosyn and vancomycin. The p atient will be going home on oral antibiotics for another 7 days and also be getting Xeroform dressin g to the wound site. The patient was recommended to keep leg elevated whenever possible and avoid fu rther activity which might cause traumatic injuries to the leg. NF/MODL Voice ID: [id number] Report ID: [id number]
[2020-05-20 02:18] VITALS: BP 138/66; TEMP 98.2
--- NOTE | 2020-05-20 02:20 | P.DS ---
Discharge Date: 05/13/20 Primary Care Provider: GRISELDA Disposition: ROUTINE DISCHARGE Discharge Condition: GOOD Reason for Admission: Cellulitis right lower extremity - Problems (1) Cellulitis of right lower extremity Status: Acute Brief History of Present Illness: Patient is a 70-year-old male with history of hypertension, hyperlipidemia presents to the emergency department for cellulitis of the right lower extremity. Patient reports that it started out as an abrasion approximately 8 days prior and he has been taking Keflex at home. Patient reports that redness and inflammation getting worse rather than better at home and therefore presented to the emergency department. Patient was evaluated in the emergency department, labs remarkable x-ray of right lower extremity unremarkable, moderately large area of cellulitis to the right lower extremity with erythema, warmth noted. Patient also has history of skin cancer affecting his nose, currently receiving radiation treatment 5 days a week. Hospital Course: Patient was given IV antibiotic therapy. Patient's clinical symptoms have improved. At this time, patient is stable for discharge home. Continue with the oral antibiotics for 10 more days. Vital Signs/Physical Exam: Temp Pulse Resp BP Pulse Ox 98.2 F 60 20 138/66 96 05/20/20 02:18 05/20/20 02:18 05/20/20 02:18 05/20/20 02:18 05/20/20 02:18 General: Alert, In no apparent distress, Oriented x3 Laboratory Data at Discharge: WBC 6.5 K/uL (4.3-10.9) 05/13/20 05:27 Hgb 12.4 g/dL (13.6-17.9) L 05/13/20 05:27 Hct 38.1 % (39.6-49.0) L 05/13/20 05:27 Plt Count 265 K/uL (152-406) 05/13/20 05:27 PT 14.0 SECONDS (9.5-12.5) H 05/10/20 23:50 INR 1.19 05/10/20 23:50 APTT 32.1 SECONDS (24.3-36.9) 05/10/20 23:50 Sodium 141 mmol/L (136-145) 05/13/20 05:27 Potassium 3.4 mmol/L (3.5-5.1) L 05/13/20 05:27 BUN 22 mg/dL (7-18) H 05/13/20 05:27 Creatinine 0.90 mg/dL (0.55-1.3) 05/13/20 05:27 Glucose 110 mg/dL (74-106) H 05/13/20 05:27 Total Bilirubin 0.8 mg/dL (0.2-1.0) 05/10/20 23:50 AST 18 U/L (15-37) 05/10/20 23:50 ALT 33 U/L (12-78) 05/10/20 23:50 Alkaline Phosphatase 84 U/L (45-117) 05/10/20 23:50 Home Medications: Amlodipine [Norvasc*] 2.5 mg PO DAILY 05/11/20 Atorvastatin Calcium [Lipitor*] 10 mg PO BEDTIME 05/11/20 Doxycycline Hyclate 50 mg PO PRN PRN 05/11/20 Valsartan/Hydrochlorothiazide [Diovan Hct 80-12.5 mg Tablet] 1 each PO DAILY 05/11/20 Codeine/APAP [Tylenol W/Codeine #3 tab] 1 tab PO Q6HP PRN #20 tab 05/13/20 Minocycline HCl 100 mg PO BID #20 capsule 05/13/20 Mupirocin Oint [Bactroban 2% Ointment] 22 appl TOP BID #1 tube 05/13/20 Smz./Tmp. [Bactrim Ds 800 MG/160 MG] 1 tab PO BID #14 tab 05/13/20 New Medications: Smz./Tmp. [Bactrim Ds 800 MG/160 MG] 1 tab PO BID #14 tab Mupirocin Oint [Bactroban 2% Ointment] 22 appl TOP BID #1 tube Minocycline HCl 100 mg PO BID #20 capsule Codeine/APAP [Tylenol W/Codeine #3 tab] 1 tab PO Q6HP PRN #20 tab PRN Reason: Pain Patient Discharge Instructions: OK TO DC IV AND DC HOME. FOLLOW-UP WITH PRIMARY CARE PROVIDER IN 1-2 WEEKS. RETURN TO THE ER IF symptoms worsen. CALL or TEXT DR. WHITE AT [phone] IF ANY QUESTIONS REGARDING HOSPITAL STAY. PLEASE CALL THE FLOOR AT [phone] IF ANY MEDICATION OR NURSING QUESTIONS. Diet: Regular Activity: Fall precautions Followup: OOT,OOT [Primary Care Provider] - Time spent managing pt's care (in minutes): 35
== END 2020-05-13 17:42 | disposition home or self-care (01) | DRG 603 ==
LOC: ER 22:17 → ERHOLD 05-11 02:55 → 2ND 05-11 15:55
PROVIDERS: ADMIT Hospitalist; ATTEND Hospitalist
DX: L03.115 Cellulitis of right lower limb (principal); I10 Essential (primary) hypertension; E78.5 Hyperlipidemia, unspecified; C44.90 Unspecified malignant neoplasm of skin, unspecified; Z88.8 Allergy status to other drugs, medicaments and biological substances; Z79.899 Other long term (current) drug therapy; Z20.822 Contact with and (suspected) exposure to COVID-19
CPT/HCPCS: 36415; 77412; 80048; 80076; 80202; 83605; 84145; 85025; 85610; 85730; 87040; 93971; 96374; 96375; 99284; J0690; J0692; J1650; J1720; J1940; J2270; J2405; J2543; J3370; J7030; J7040; U0003

== ENCOUNTER 2020-05-28 14:18 | Inpatient (IN) | payer OTHER, BC ==
--- OUTSIDE RECORDS SUMMARY | 2020-05-28 14:27 | XMS REPORT | Continuity of Care Document ---
:1950 [address] [facility] t Address [address] [place] [address] Care Team Providers Name Role Phone Henrique [...] 2020-03-07 Memoria ve d 00:54:23 l disorder, Thad systemic Hypertensi arterial ve (disorder) disorder, systemic arterial (disorder) Resolved Problem 03/07/2020 [facility] Malignant Problem Resolve 2020-03-07 M emoria neoplastic d 00:54:23 l disease Thad (disorder) Malignant neoplastic disease (disorder) Resolved Problem 03/07/2020 [facility] Group Benign Problem Active 2020-03-07 Memor ia prostatic 00:54:23 l hypertroph Benign Herm magaly with prostatic outflow hypertroph obstructio with n outflow (disorder) obstructio n (disorder) Active Problem 03/07/2020 [facility] Group Follow-up Problem Active 2020-03-07 Me moria status 00:54:23 l (finding) Thad Follow-up status (finding) Active Problem 03/07/2020 [facility] Group Impotence Problem Active 2020-03-07 Me moria of organic 00:54:23 l origin [place] (disorder) Impotence of organic origin (disorder) Active Problem 03/07/2020 [facility] Group 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) hypogonadi sm (disorder) Active Problem 03/07/2020 [facility] Group Morbid Problem Active 2020-03-07 Memor ia obesity 00:54:23 l (disorder) Morbid Herm magaly obesity (disorder) Active Problem 03/07/2020 [facility] Group Allergies, Adverse Reactions, Alerts Allergy Allergy Status Severity Reaction(s) Onset Inactive Treating Comm ents Source Name Type Date Date Clinician IODINE DA Active U 2001-0 [facility] [place] 00:[facility]: [address] IODINE DA Active U 2001-0 [facility] TOPICAL [facility] [place] 00:00: [address] No Known DA Active U 2001-0 [facility] Other [facility] [place] Allergie 00:00: [address] SHRIMP DA Active U 2001-0 [facility] [place] 00:[facility]: [address] SULFA DA Active U 2001-0 [facility] DRUGS [facility]14 [place] 00:00: [address] sulfa sulfa Active Memoria drugs drugs l Thad iodine iodine Active Memoria l [place] Social History Smoking Status Start Date Stop Date Source Social History [facility] Medications This patient has no known medications. Vital Signs Vital Name Observation Time Observation Value Comments Source Systolic (mm Hg) 2020-03-04 21:54:00 Livan rial [place] Diastolic (mm Hg) 2020-03-04 21:54:00 Mem orial [place] Height 2020-03-04 21:54:00 187.96 cm [facility] Weight 2020-03-04 21:54:00 [facility] BMI Calculated 2020-03-04 21:54:00 Memori al Th[facility] Height 2019-03-06 19:04:00 183.64 cm [facility] Weight 2019-03-06 19:04:00 [facility] [place] BMI Calculated 2019-03-06 19:04:00 Memori al Thad Systolic (mm Hg) 2019-03-06 19:04:00 Livan rial Thad Diastolic (mm Hg) 2019-03-06 19:04:00 Mem orial [facility] Height 2018-03-08 22:03:00 185.42 cm [facility] [place] BMI Calculated 2018-03-08 22:03:00 Artem al [place] Weight 2018-03-08 22:03:00 [facility] Systolic (mm Hg) 2018-03-08 22:03:00 Livan ewing [place] Diastolic (mm Hg) 2018-03-08 22:03:00 Mem orial [place] Procedures Procedure Date / Time Performing Clinician Source Performed Measurement of post-voiding 2020-03-04 21:49:00 [facility] residual urine and/or bladder capacity by ultrasound, non-imaging Colonoscopy<sup>1</sup> 2016-03-06 05:00:00 Livan ewing Thad Excision of melanoma [facility] rmann Right heart catheterization Livansamuel ewing Thad Encounters Start End Encounter Admission Attending Care Care Encounter Source Date/Time Date/Time Type Type Clinicians Facility Department ID 2020-03-04 2020-03-04 Outpatient Ana Luisa [facility] [id number] 15:15:00 23:59:59 Keenan Duenas 05 2019-03-06 2019-03-06 Outpatient Ana Luisa [facility] [id number] 15:15:00 23:59:59 Keenan Duenas 04 2018-03-08 2018-03-08 Outpatient Ana Luisa [facility] [id number] 15:30:00 23:59:59 Keenan Duenas 03 Results Test Description Test Time Test Comments Results Result Sourc e Comments ENDOCRINOLOGY 2020-03-04 242 [facility] 22:36:00 Thad SPECIAL CHEMISTRY 2020-03-04 0.8 Memoria l 22:36:00 Thad URINE AND STOOL 2020-03-04 Yellow [facility] 21:51:00 *NA*(03/04/20 [place] 3:51 PM) URINE AND STOOL 2020-03-04 Clear [facility] 21:51:00 *NA*(03/04/20 Thad 3:51 PM) URINE AND STOOL 2020-03-04 21:51:00 Test Item Value Reference Range Interpretation Comme nts POC UA SG (test code = POC UA SG) 1.015 1 [facility] HermannURINE AND [id number] 21:51:00 Test Item Value Reference Range Interpretation Comments POC UA pH (test code = POC UA pH) 7.0 1 5.0-8.0 [facility] AND [id number] 21:51:00Negative *NA*(03/04/20 3:51 PM) [facility] [id number] 21:51:00Negative *NA*(03/04/20 3:51 PM) [facility] [id number] 21:51:000.2[facility] [id number] 21:51:00Negative *NA*(03/04/20 3:51 PM)[facility] [id number] 21:51:00Negative *NA*(03/04/20 3:51 PM)[facility] CT MAXIFAC W/O [id number] 16:29:00 Patient Name: NUHA ZUÑIGA Unit No: [id number] EXAMS: CPT CODE: [id number] CT MAXIFAC W/O CONTRAST 24599 Location: T 18 CT of the sinuses, [...] IMPRESSION: MEME Palumbo NAME: NUHA ZUÑIGA JR [id number] [address] PHYS: BRIANNA. - [place] [address] : 1950 AGE: 69 SEX: M LOC: JUDY PHONE #: [phone] EXAM DATE: 05/20/2019 STATUS: REG CLI FAX#: [phone] RAD #: [id number] D/C DT PAGE 1Signed Report (CONTINUED) Patient Name: NUHA ZUÑIGA JR Unit No: [id number] EXAMS: CPT CODE: [id number] CT MAXIFAC W/O CONTRAST 71504 <Continued> Small degree of ethmoid air cell [...] RT(R) CTDI: DLP: Trnscrpt: 05/20/2019 (1629) t.SDR.DAS6 [facility] NAME: NUHA ZUÑIGA JR [id number] [address] PHYS: BRIANNA. - [place] [address] : 1950 AGE: 69 SEX: M [facility] #: [phone] EXAM DATE: 05/20/2019 STATUS: REG CLI FAX #: [phone] RAD #: [id number] D/C DT PAGE 2 Signed Report Patient Name: NUHA ZUÑIGA JR Unit No: [id number] EXAMS: CPT CODE: [id number] CT MAXIFAC W/OCONTRAST 42493 <Continued> Orig Print D/T: S: 05/20/2019 (1632) [facility] NAME: NUHA ZUÑIGA JR [id number] [address] PHYS: BRIANNA.01 - [place] [address] : 1950 AGE: 69 SEX: M LOC: JUDY PHONE #: [phone] EXAM DATE: 05/20/2019 STATUS: REG CLI FAX #: [phone] RAD #: [id number] D/C DT PAGE 3 Signed ReportURINE AND [id number] 23:24:00Yellow *NA*(03/06/19 5:24 PM)[facility] [id number] 23:24:00Clear *NA*(03/06/19 5:24 PM)[facility] [id number] 23:24:00 Test Item Value Reference Range Interpretation Comments POC UA SG (test code = POC UA SG) 1.015 1 [facility] [id number] 23:24:00 Test Item Value Reference Range Interpretation Comments POC UA pH (test code = POC UA pH) 7.0 1 5.0-8.0 [facility] [id number] 23:24:00Negative *NA*(03/06/19 5:24 PM) [facility] [id number] 23:24:00Negative *NA*(03/06/19 5:24 PM) [facility] [id number] 23:24:000.2[facility] [id number] 23:24:00Negative *NA*(03/06/19 5:24 PM)[facility] [id number] 23:24:00Negative *NA*(03/06/19 5:24 PM)[facility]- XR CHEST 2 [id number] 18:44:00 Patient Name: NUHA ZUÑIGA JR Unit No: [id number] EXAMS: CPT CODE: [id number] XR CHEST 2 V 52628 Location: H28 EXAM: - XR CHEST 2 [...] [id number] Orig Print D/T: S: 11/13/2018 (1846) [facility] NAME: NUHA ZUÑIGA JR [id number] [address] PHYS: BRIANNA. - [place] [address] : 1950 AGE: 68 SEX: M LOC: [facility] PHONE #: [phone] EXAM DATE: 11/13/2018 STATUS: REG CLI FAX #: [phone] RADIOLOGY NO: PAGE 1 Signed Report- XR CHEST 2 [id number] 18:44:00 Patient Name: LALONUHA Correa Unit No: [id number] EXAMS: CPT CODE: [id number] XR CHEST 2 V 59111 Location: H28 EXAM: - XR CHEST 2 [...] [id number] Orig Print D/T: S: 11/13/2018 (1846) [facility] NAME: NUHA ZUÑIGA JR [id number] [address] PHYS: BRIANNA. - [place] [address] : 1950 AGE: 68 SEX: M LOC: BEV PHONE #: [phone] EXAM DATE: 11/13/2018 STATUS: LEEANNA CLI FAX #: [phone] RADIOLOGY NO: [id number] PAGE 1 Signed Report
--- OUTSIDE RECORDS SUMMARY | 2020-05-28 14:27 | XMS REPORT | Continuity of Care Document ---
:1950 Author Organization [facility] Care Team Providers Name Role Phone [facility] Unavailable Un available Problems Problem Status Onset [...] below 250 ng/dL.
Thi s test code (27733) must be collected in a
red-top tube with no gel.

Lab test performed by:
[facility]
[address]
[place] [address]<br/ >Nuha Green SPECIAL PSA 0.8 < OR = 4.0 03/04 Result MH CHEMISTRY ng/mL Comment: The Medical total PSA Group value from this assay system is
standardi zed against the WHO standard. The test
result will be approximately 20% lower when compared
to the equimolar-hugo dardized total PSA ([place]). Comparison of serial PSA results should be
interpret ed with this fact in mind.

This test was performed using the Siemens
chemilumi nescent method. Values obtained from
different assay methods cannot be used
inter changeably. PSA levels, regardless of
value, should not be interpreted as absolute
e vidence of the presence or absence of disease.

Lab test performed by:
[facility]
[address] [place] [address]
[place] [address]<br/ >Nuha Green URINE AND POC UA Color [...] Location Location Encounter Encounter Reason Attending ADM RI Stat us Source Details Type Number For Provider Date Date Visit Outpatient [id number] PAM 01/12 [facility] [place] Outpatient [id number] 09/06 [facility] [place] Outpatient [id number] 02/28 [facility] Outpatient [id number] 03/08 [facility] Outpatient [id number] 03/08 [facility] Outpatient [id number] 03/06 [facility] Outpatient [id number] 03/06 [facility] Outpatient [id number] 03/04 [facility] Outpatient [id number] Pam 03/04 03/05 [facility] Outpatient [id number] 03/03 [facility] [place] Procedures Procedure Code Date Perfomer [place] [address] 03/04/2020 Medical post-voiding residual Arnav up urine and/or bladder capacity by ultrasound, non-imaging Colonoscopy<sup>1</paredes [id number] 03/06/2016 normal per Medical p> pt. Group Excision of melanoma [id number] M edical Group Right heart [id number] Medical catheterization Group Assessment and Plan No [...]
[2020-05-28 16:00] LABS: Absolute Lymphocytes (CBC) 0.5 K/uL (0.7-4.9); Basophils % 0.6 % (0-1.3); Hematocrit 40.8 % (39.6-49.0); Lymphocytes % 4.4 % (15.3-44.8)
--- NOTE | 2020-05-28 16:34 | RAD REPORT ---
EXAM DESCRIPTION: US - Extremity Venous Uni Ltd - 05/28/2020 4:28 pm CLINICAL HISTORY: SWELLING Leg swelling and edema. COMPARISON: Extremity Venous Uni Ltd dated 05/11/2020 FINDINGS: Right lower extremity venous system was interrogated with Doppler technique. Normal flow, compressibility and augmentation was noted. There is no DVT present. IMPRESSION: No evidence of right lower extremity deep venous thrombosis.
[2020-05-28 17:15] LABS: Blood Morphology Comment NOT SEEN (NOT SEEN); Platelet Estimate ADEQ; White Blood Cell Scan OK (OK)
[2020-05-28] MEDS ORDERED: VANCOMYCIN 1 GM/VIAL ONE (19:42)
[2020-05-28] MEDS ORDERED: NA CHLORIDE 0.9% 250 ML ONE (19:42)
[2020-05-28] MEDS ORDERED: Levofloxacin 750mg IV 750 MG/150 ML BAG IV ONE (19:42)
--- NOTE | 2020-05-28 19:48 | ER ---
Nurse's Notes [facility] Name: Ariel Albrecht Jr Age: 70 yrs Sex: Male : 1950 Arrival Date: 05/28/2020 Time: 14:22 Bed 2 Private MD: Diagnosis: Cellulitis of right lower limb-Right Presentation: 05/28 15:16 Chief complaint: Patient states: Was admitted here on 05/11/2020 - 05/13/2020 for ca1 cellulitis of the R leg. I got better, completed Bactrim x 7 days. Visited my PCP and was prescribed with another round of Bactrim x 5 days and Minocylcine (completed). Noticed my R leg swelling and red again last night. Complains of tightness on the R leg. Coronavirus screen:. Coronavirus screen: The client reports previous COVID testing was negative. Date of collection: May 11, 2020. Ebola Screen: Patient negative for fever greater than or equal to 101.5 degrees Fahrenheit, and additional compatible Ebola Virus Disease symptoms Patient denies exposure to infectious person. Patient denies travel to an Ebola-affected area in the 21 days before illness onset. No symptoms or risks identified at this time. Initial Sepsis Screen: Does the patient meet any 2 criteria? No. Patient's initial sepsis screen is negative. Does the patient have a suspected source of infection? No. Patient's initial sepsis screen is negative. Risk Assessment: Do you want to hurt yourself or someone else? Patient reports no desire to harm self or others. Onset of symptoms was May 28, 2020. 15:16 Method Of Arrival: Ambulatory ca1 15:16 Acuity: [place] 3 ca1 Historical: - Allergies: 15:23 Iodine; ca1 - PMHx: 15:23 Blephritis; Skin cancer on nose- receiving treatment; ca1 - PSHx: 15:23 None; ca1 - Immunization history:: Pneumococcal vaccine is up to date, Flu vaccine is not up to date. - Social history:: Smoking status: Patient denies any tobacco usage or history of. Screenin:32 Abuse screen: Denies threats or abuse. Denies injuries from another. Nutritional rr5 screening: No deficits noted. Tuberculosis screening: No symptoms or risk factors identified. Fall Risk IV access (20 points). Total Neri Fall Scale indicates No Risk (0-24 pts). Assessment: 15:31 Reassessment: Notified Dr. Rice. VO Ultrasound of R leg and CBC, BMP. ca1 19:32 Reassessment: Patient appears in no apparent distress at this time. Patient is alert, rr5 oriented x 3, equal unlabored respirations, skin warm/dry/pink. hospitalist at bedside. General: Appears in no apparent distress. comfortable, Behavior is calm, cooperative, appropriate for age. Pain: Complains of pain in right leg Pain currently is 5 out of 10 on a pain scale. Quality of pain is described as aching, Pain began gradually, Is intermittent. Neuro: Level of Consciousness is awake, alert, obeys commands, Oriented to person, place, time, situation. Cardiovascular: Capillary refill < 3 seconds Patient's skin is warm and dry. Respiratory: Airway is patent Respiratory effort is even, unlabored, Respiratory pattern is regular, symmetrical. GI: No signs and/or symptoms were reported involving the gastrointestinal system. : No signs and/or symptoms were reported regarding the genitourinary system. EENT: No signs and/or symptoms were reported regarding the EENT system. Derm: Skin is red, right lower leg Skin temperature is warm. Musculoskeletal: Capillary refill < 3 seconds. 20:35 Reassessment: Patient appears in no apparent distress at this time. Patient is alert, rr5 oriented x 3, equal unlabored respirations, skin warm/dry/pink. awaiting for results. 21:30 Reassessment: Patient appears in no apparent distress at this time. Patient and/or rr5 family updated on plan of care and expected duration. Pain level reassessed. Patient is alert, oriented x 3, equal unlabored respirations, skin warm/dry/pink. 22:00 Reassessment: Patient appears in no apparent distress at this time. Patient is alert, rr5 oriented x 3, equal unlabored respirations, skin warm/dry/pink. hospitalist at bedside. 23:00 Reassessment: Patient appears in no apparent distress at this time. No changes from rr5 previously documented assessment. Patient is alert, oriented x 3, equal unlabored respirations, skin warm/dry/pink. 05/29 00:00 Reassessment: Patient appears in no apparent distress at this time. Patient is alert, rr5 oriented x 3, equal unlabored respirations, skin warm/dry/pink. Vital Signs: 05/28 15:16 BP 136 / 62; Pulse 66; Resp 16 S; Temp 97.6(TE); Pulse Ox 98% on R/A; Weight 98.88 kg ca1 (R); Height 6 ft. 3 in. (190.50 cm) (R); Pain 0/10; 20:30 BP 131 / 75; Pulse 69; Resp 17; Pulse Ox 99% ; rr5 21:30 BP 120 / 62; Pulse 62; Resp 17; Pulse Ox 99% ; rr5 22:30 BP 126 / 84; Pulse 65; Resp 19; Pulse Ox 99% ; rr5 23:10 BP 119 / 84; Pulse 61; Resp 17; Pulse Ox 98% ; rr5 05/29 00:00 BP 124 / 55; Pulse 69; Resp 15; Temp 98; Pulse Ox 98% ; rr5 05/28 15:16 Body Mass Index 27.25 (98.88 kg, 190.50 cm) ca1 ED Course: 05/28 14:22 Patient arrived in ED. ag5 15:22 Triage completed. ca1 15:23 Arm band placed on right wrist. ca1 15:40 Initial lab(s) drawn, by me, sent to lab. Inserted saline lock: 20 gauge in right ca1 antecubital area, using aseptic technique. Blood collected. 15:58 Patient taken to ultrasound. via wheelchair. is 16:26 Ultrasound completed. Patient tolerated well. is 16:26 Patient taken to lobby, via wheelchair, Patient moved back from ultrasound. is 16:28 Extremity Venous Uni Ltd US In Process Unspecified. EDMS 18:33 Carlyle Soni PA is PHCP. cp 18:33 Tristen Rice MD is Attending Physician. cp 18:36 Isidoro Adamson, KWAKU is Primary Nurse. bp 19:35 Patient has correct armband on for positive identification. Placed in gown. Bed in low rr5 position. Call light in reach. Pulse ox on. NIBP on. 19:45 Shaane Hirsch MD is Hospitalizing Provider. cp 20:05 Inserted saline lock: 22 gauge in left antecubital area, using aseptic technique. Blood ds4 collected. 05/29 00:00 No provider procedures requiring assistance completed. Patient admitted, IV remains in rr5 place. intact, No redness/swelling at site. Administered Medications: 05/28 20:14 Drug: LevaQUIN 750 mg Volume: 150 ml; Route: IVPB; Infused Over: 90 mins; Site: left rr5 antecubital; 21:15 Follow up: Response: No adverse reaction; IV Status: Completed infusion; IV Intake: rr5 150ml 21:30 Drug: vancoMYCIN 1 grams Route: IVPB; Infused Over: 2 hrs; Site: left antecubital; rr5 23:30 Follow up: Response: No adverse reaction; IV Status: Completed infusion; IV Intake: rr5 250ml Intake: 21:15 IV: 150ml; Total: 150ml. rr5 23:30 IV: 250ml; Total: 400ml. rr5 Outcome: 19:47 Decision to Hospitalize by Provider. cp 05/29 00:00 Admitted to ER Hold. Please see [facility] for further documentation. rr5 Condition: stable Discharge instructions given to patient, Instructed on the need for admit, Demonstrated understanding of instructions. 09:22 Patient left the ED. jl7 Signatures: Dispatcher [employer] EDMS Franky Roth ds4 Carlyle Soni, GIULIANA GIORDANO cp Riaz Bar RN RN jl7 Isidoro Adamson RN RN bp Roque, Raymond, RN RN rr5 Sarah Escamilla RN RN Tierney Stephen Irma Monsivais is
--- NOTE | 2020-05-28 19:48 | EDPHYS ---
Physician Documentation [facility] Name: Ariel Albrecht Jr Age: 70 yrs Sex: Male : 1950 Arrival Date: 05/28/2020 Time: 14:22 Bed 2 Private MD: ED Physician Tristen Rice HPI: 05/28 19:20 This 70 yrs old Male presents to ER via Ambulatory with complaints of cp Cellulitis- antibiotics. 19:20 The patient presents with cellulitis of the right lower leg. cp 19:20 Description: erythematous, swollen, warm. Onset: The symptoms/episode began/occurred cp this morning. Associated signs and symptoms: Pertinent negatives: discharge, drainage, fever, shortness of breath. 19:20 Patient reports recent admission here at [facility] for right lower cellulitis, 05-11-2020 cp thru 05-13-2020. Patient was discharged with oral Bactrim and completed 7 days course. Patient was supposed to continue Bactrim for another 5 days after f/u with PCP. Patient reports noticing return of swelling and redness to right lower leg this morning. Historical: - Allergies: 15:23 Iodine; ca1 - PMHx: 15:23 Blephritis; Skin cancer on nose- receiving treatment; ca1 - PSHx: 15:23 None; ca1 - Immunization history:: Pneumococcal vaccine is up to date, Flu vaccine is not up to date. - Social history:: Smoking status: Patient denies any tobacco usage or history of. ROS: 19:25 Constitutional: Negative for body aches, chills, fever, poor PO intake. cp 19:25 Cardiovascular: Negative for chest pain, palpitations. cp 19:25 Respiratory: Negative for cough, shortness of breath, wheezing. 19:25 Abdomen/GI: Negative for abdominal pain, nausea, vomiting, and diarrhea. 19:25 Skin: Positive for cellulitis, swelling, of the right lower leg. 19:25 Neuro: Negative for altered mental status, headache, numbness, weakness. 19:25 All other systems are negative. Exam: 19:25 Head/Face: Normocephalic, atraumatic. cp 19:25 Constitutional: The patient appears in no acute distress, alert, awake, non-diaphoretic, non-toxic, well developed, well nourished. 19:25 Eyes: Periorbital structures: appear normal, Conjunctiva: normal, no exudate, no injection, Sclera: no appreciated abnormality, Lids and lashes: appear normal, bilaterally. 19:25 ENT: External ear(s): are unremarkable, Nose: is normal, Posterior pharynx: Airway: no evidence of obstruction, patent. 19:25 Chest/axilla: Inspection: normal, Palpation: is normal, no crepitus, no tenderness. 19:25 Cardiovascular: Rate: normal, Pulses: Pulses are 2+ in right dorsalis pedis artery and left dorsalis pedis artery. 19:25 Respiratory: the patient does not display signs of respiratory distress, Respirations: normal, no use of accessory muscles, labored breathing, is not present, Breath sounds: are clear throughout, no decreased breath sounds. 19:25 Skin: cellulitis, that is moderate, irregular, on the right lower leg. Vital Signs: 15:16 BP 136 / 62; Pulse 66; Resp 16 S; Temp 97.6(TE); Pulse Ox 98% on R/A; Weight 98.88 kg ca1 (R); Height 6 ft. 3 in. (190.50 cm) (R); Pain 0/10; 20:30 BP 131 / 75; Pulse 69; Resp 17; Pulse Ox 99% ; rr5 21:30 BP 120 / 62; Pulse 62; Resp 17; Pulse Ox 99% ; rr5 22:30 BP 126 / 84; Pulse 65; Resp 19; Pulse Ox 99% ; rr5 23:10 BP 119 / 84; Pulse 61; Resp 17; Pulse Ox 98% ; rr5 05/29 00:00 BP 124 / 55; Pulse 69; Resp 15; Temp 98; Pulse Ox 98% ; rr5 05/28 15:16 Body Mass Index 27.25 (98.88 kg, 190.50 cm) ca1 MDM: 05/28 18:35 Patient medically screened. cp 19:00 Differential diagnosis: abscess, cellulitis, DVT, sepsis. cp 19:45 Data reviewed: vital signs, nurses notes, lab test result(s), radiologic studies, cp ultrasound. 19:45 Physician consultation: Amadeo GIORDANO was contacted at 19:45, regarding admission, to the medical/surgical unit. patient's condition, and will see patient in ED, shortly. 05/28 15:33 Order name: CBC with Diff; Complete Time: 18:59 ca1 05/28 18:59 Interpretation: Normal except: WBC 11.00; HGB 13.3; ASUNCION% 86.2; LYM% 4.4; NEUT A 9.5; cp LYMA 0.5. 05/28 15:33 Order name: Basic Metabolic Panel; Complete Time: 18:59 ca1 05/28 17:15 Order name: CBC Smear Scan; Complete Time: 18:59 EDMS 05/28 19:01 Order name: Lactate cp 05/28 19:01 Order name: Procalcitonin cp 05/28 19:01 Order name: Blood Culture Adult (2) cp 05/28 19:01 Order name: PT-INR cp 05/28 19:01 Order name: Ptt, Activated cp 05/28 19:01 Order name: CRP cp 05/28 19:01 Order name: Sed Rate cp 05/28 19:45 Order name: COVID-19 : Document "Date of Symptom Onset" if Symptomatic. cp 05/28 20:26 Order name: CORONAVIRUS EDMT 05/28 20:47 Order name: Protime (+INR) EDMT 05/28 20:47 Order name: PTT, Activated Partial Thromb EDMT 05/28 15:33 Order name: Extremity Venous Uni Ltd US; Complete Time: 18:59 ca1 05/28 20:47 Order name: Sedimentation Rate, Westergren EDMT 05/28 21:10 Order name: Lactate EDMT 05/28 21:17 Order name: SARS-COV-2 RT PCR EDMT 05/28 21:19 Order name: Procalcitonin EDMT 05/28 22:19 Order name: C-Reactive Protein EDMT 05/29 04:50 Order name: Basic Metabolic Panel EDMS 05/29 05:20 Order name: CBC with Automated Diff EDMS Administered Medications: 20:14 Drug: LevaQUIN 750 mg Volume: 150 ml; Route: IVPB; Infused Over: 90 mins; Site: left rr5 antecubital; 21:15 Follow up: Response: No adverse reaction; IV Status: Completed infusion; IV Intake: rr5 150ml 21:30 Drug: vancoMYCIN 1 grams Route: IVPB; Infused Over: 2 hrs; Site: left antecubital; rr5 23:30 Follow up: Response: No adverse reaction; IV Status: Completed infusion; IV Intake: rr5 250ml Disposition: 21:00 Chart complete. cp 05/29 07:01 Co-signature as Attending Physician, Tristen Rice MD I agree with the assessment and kdr plan of care. Disposition: 05/28/20 19:47 Hospitalization ordered by Shanae Hirsch for Inpatient Admission. Preliminary diagnosis is Cellulitis of right lower limb - Right. - Bed requested for Telemetry/MedSurg (Inpatient). - Status is Inpatient Admission. jl7 - Condition is Stable. - Problem is new. - Symptoms are unchanged. Signatures: Dispatcher [employer] EDMS Christina Rubalcava RN RN dw Tristen Rice MD MD kdr Carlyle Soni PA PA cp Leal, Jahala, RN RN jl7 Mariajose Cordova Raymond RN RN rr5 Sarah Escamilla RN RN ca1 Corrections: (The following items were deleted from the chart) 05/28 19:54 19:47 Hospitalization Ordered by Shanae Hirsch MD for Inpatient Admission. Preliminary dw diagnosis is Cellulitis of right lower limb - Right. Bed requested for Telemetry/MedSurg (observation). Status is Inpatient Admission. Condition is Stable. Problem is new. Symptoms are unchanged. cp 05/29 08:21 05/28 19:54 05/28/2020 19:47 Hospitalization Ordered by Shanae Hirsch MD for Inpatient eb Admission. Preliminary diagnosis is Cellulitis of right lower limb - Right. Bed requested for [facility] ER HOLD. Status is Inpatient Admission. Condition is Stable. Problem is new. Symptoms are unchanged. dw 05/29 09:22 08:21 05/28/2020 19:47 Hospitalization Ordered by Shanea Hirsch MD for Inpatient jl7 Admission. Preliminary diagnosis is Cellulitis of right lower limb - Right. Bed requested for Telemetry/MedSurg (Inpatient). Status is Inpatient Admission. Condition is Stable. Problem is new. Symptoms are unchanged. eb
[2020-05-28 20:46] LABS: Protime INR 1.18
[2020-05-28] MEDS ORDERED: ONDANSETRON 4 MG/2 ML VIAL IV PRN (21:11)
[2020-05-28] MEDS ORDERED: HYDRALAZINE HCL 20 MG/ML VIAL IV PRN (21:11)
[2020-05-28] MEDS ORDERED: ACETAMINOPHEN 500 MG TAB PO PRN (21:11)
[2020-05-28] MEDS ORDERED: MORPHINE 2 MG/ML SYR IV PRN (21:11)
--- NOTE | 2020-05-29 00:41 | P.HP ---
Certification for Inpatient Patient admitted to: Inpatient With expected LOS: >2 Midnights Patient will require the following post-hospital care: None Practitioner: I am a practitioner with admitting privileges, knowledge of patient current condition, hospital course, and medical plan of care. Services: Services provided to patient in accordance with Admission requirements found in Title 42 Section 412.3 of the Code of Federal Regulations <Candi Keysshua - Last Filed: 05/29/20 00:34> Patient History Date of Service: 05/28/20 Primary Care Provider: Dr. Blackburn Reason for admission: cellulitis failing previous treatment History of Present Illness: Mr. Albrecht is a 70 yo male with HTN here today for cellulitis worsening after treatment. He was admitted here from 05/11-05/13/20 for cellulitis of the R leg that initially improved during admission. He then completed a 7 day course of Bactrim outpatient. With his PCP, he was given another 10 day course of Bactrim and minocycline, but only completed 5 days. He has also been using topical mupirocin. Last night, he reports worsening swelling, tightness and erythema of the right calf. He denies systemic symptoms. There is diffuse poorly demarcated erythema and edema and warmth on the right calf below the knee with a well healing wound on medial calf and dry, cracking skin. Na 142, K 4, Cl 105, HCO3 30, BUN 18, Cr 1.07, Glu 96. Hgb/Hct 13.3/40.8, WBC 11, Plt 300. Ultrasound negative for DVT. Home medications list reviewed: Yes - Past Medical/Surgical History Diabetic: No -: Hypertension -: Hyperlipidemia -: Skin cancer -: blephritis -: removal of melanoma -: removal of chalazions Psychosocial/ Personal History: Patient is retired, lives with family - Family History Father -: Heart disease, Diabetes Mother -: Heart disease, Diabetes - Social History Smoking Status: Never smoker Counseled patient to stop smoking for: less than 10 minutes Smoking therapy provided: No Alcohol use: No CD- Drugs: No Caffeine use: Yes Place of Residence: Home <Mervin Keys - Last Filed: 05/29/20 00:34> Date of Service: 05/28/20 <Shanae Hirsch - Last Filed: 06/03/20 01:17> Allergies orange Allergy (Verified 05/18/20 15:02) Nausea/Vomiting pineapple Allergy (Verified 05/18/20 15:02) Nausea/Vomiting tomato Allergy (Verified 05/18/20 15:02) Nausea/Vomiting iodine Adverse Reaction (Verified 05/18/20 15:02) Itching/Hives/Rash Home Medications: Amlodipine [Norvasc*] 2.5 mg PO DAILY 05/11/20 Atorvastatin Calcium [Lipitor*] 10 mg PO BEDTIME 05/11/20 Valsartan/Hydrochlorothiazide [Diovan Hct 80-12.5 mg Tablet] 1 each PO DAILY 05/11/20 Ciprofloxacin HCl [Cipro 500 MG Tablet] 500 mg PO BID #20 tab 05/30/20 Doxycycline Hyclate [Vibramycin] 100 mg PO BID #20 capsule 05/30/20 Review of Systems General: Unremarkable Eyes: Unremarkable ENT: Unremarkable Respiratory: Unremarkable Cardiovascular: Unremarkable Gastrointestinal: Unremarkable Genitourinary: Unremarkable Musculoskeletal: Leg Pain, As per HPI Integumentary: As per HPI Neurological: Unremarkable Lymphatics: Unremarkable <Mervin Keys - Last Filed: 05/29/20 00:34> Physical Examination - Vital Signs Temperature: 97.6 F Blood Pressure: 136/62 Pulse: 66 Respirations: 16 Pulse Ox (%): 98 - Physical Exam General: Alert, In no apparent distress, Oriented x3, Cooperative HEENT: Atraumatic, Normocephalic, PERRLA, Mucous membr. moist/pink Neck: Supple, 2+ carotid pulse no bruit, JVD not distended, No Thyromegaly, No LAD Respiratory: Clear to auscultation bilaterally, Normal air movement Cardiovascular: Normal pulses, Regular rate/rhythm, Normal S1 S2, No gallops, No rubs, No murmurs Capillary refill: <2 Seconds Gastrointestinal: Normal bowel sounds, Soft and benign, Non-distended, No ascites, No tenderness, No masses Musculoskeletal: No clubbing, No contractures, No tenderness, Swelling, Erythema, Warmth Integumentary: No significant lesion, No cyanosis, Rash(es), Skin breakdown, Tenderness/swelling, Erythema, Warmth, Venous stasis ulcer, Other Neurological: Normal gait, Normal speech, Normal strength at 5/5 x4 extr, Normal tone, Sensation intact, Cranial nerves 3-12 intact, Normal affect Lymphatics: No axilla or inguinal lymphadenopathy - Studies Laboratory Data (last 24 hrs) 05/28/20 15:43: Sodium 142, Potassium 4.0, BUN 18, Creatinine 1.07, Glucose 96 05/28/20 15:43: WBC 11.00 H, Hgb 13.3 L, Hct 40.8, Plt Count 300 <Mervin Keys - Last Filed: 05/29/20 00:34> Assessment and Plan - Problems (Diagnosis) (1) Cellulitis of right lower extremity Onset Date: ~05/11/20 Status: Acute Plan: -1 gram vancomycin q12h and 750g levaquin q 24h - blood cultures x 2 - no systemic symptoms. continue to monitor. (2) Hypertension Status: Chronic Plan: - 136/62 on admission, well-controlled, continue to monitor Qualifiers: Hypertension type: essential hypertension Qualified Code(s): I10 - Essential (primary) hypertension Discharge Plan: Home Plan to discharge in: Greater than 2 days - Advance Directives Does patient have a Living Will: No Does patient have a Durable POA for Healthcare: No - Code Status/Comfort Care Code Status Assessed: Yes (full code) Code Status: Full Code Critical Care: No Time Spent Managing Pts Care (In Minutes): 70 <Mervin Keys - Last Filed: 05/29/20 00:34> Date of Service: 05/28/20 Carlos has been reviewed. Events of the last 24 hours has been noted. Continue with current plan of care at this time. <Shanae Hirsch - Last Filed: 06/03/20 01:17>
[2020-05-29 02:32] VITALS: BMI 27.2
[2020-05-29 04:38] LABS: Absolute Lymphocytes (CBC) 0.8 K/uL (0.7-4.9); Basophils % 0.7 % (0-1.3); Hematocrit 38.6 % (39.6-49.0); Lymphocytes % 8.6 % (15.3-44.8); MPV 7.9 fL (7.6-11.3)
[2020-05-29 04:50] LABS: Potassium 3.8 mmol/L (3.5-5.1)
[2020-05-29] MEDS ORDERED: VANCOMYCIN/NS 1 gm 1 GM/250 ML BAG IVPB SCH (08:00)
[2020-05-29] MEDS: VANCOMYCIN 1.75 GM in NA CHLORIDE 0.9% 500 ML IVPB SCH ×2 (08:00→21:09)
[2020-05-29] MEDS ORDERED: PNEUMOCOCCAL VACCINE 0.5 ML IMVAC ONE (08:00)
[2020-05-29] MEDS ORDERED: ENOXAPARIN 40 MG/0.4 ML SQ SCH (17:00)
[2020-05-29] MEDS ORDERED: Meropenem 500 MG VIAL IV SCH (17:00)
[2020-05-29] MEDS: Meropenem 500 MG/100 ML BAG IV SCH (17:02)
[2020-05-29] MEDS ORDERED: Levofloxacin 750mg IV 750 MG/150 ML BAG IV SCH (19:00)
[2020-05-30] MEDS: Meropenem 500 MG/100 ML BAG IV SCH ×2 (01:44→09:55)
[2020-05-30] MEDS: VANCOMYCIN 1.75 GM in NA CHLORIDE 0.9% 500 ML IVPB SCH (09:56)
[2020-05-30 12:40] VITALS: O2SAT 98
[2020-05-30 12:46] VITALS: TEMP 97
[2020-05-30 16:51] VITALS: BP 126/60
--- NOTE | 2020-06-03 01:19 | P.PN ---
Subjective Date of Service: 05/29/20 Subjective: No new changes, No C/O voiced, Improving Review of Systems 10-point ROS is otherwise unremarkable Physical Examination - Vital Signs Temperature: 97.0 F Blood Pressure: 126/60 Pulse: 59 Respirations: 16 Pulse Ox (%): 99 - Physical Exam General: Alert, In no apparent distress, Oriented x3 Respiratory: Clear to auscultation bilaterally, Normal air movement Cardiovascular: Regular rate/rhythm, Normal S1 S2 Gastrointestinal: Normal bowel sounds, Soft and benign, Non-distended, No tenderness Musculoskeletal: Swelling, Erythema Integumentary: Erythema Neurological: Normal speech, Normal tone, Normal affect Lymphatics: No axilla or inguinal lymphadenopathy - Studies Medications List Reviewed: Yes Assessment & Plan - Problems (Diagnosis) (1) Cellulitis of right lower extremity Onset Date: ~05/11/20 Status: Acute (2) Hypertension Status: Chronic Qualifiers: Hypertension type: essential hypertension Qualified Code(s): I10 - Essential (primary) hypertension - Plan Plan: - Continue with IV antibiotic - This could also be a vasculitis and patient needs to follow up with magnetic resonance imaging coordinator or genetic counselor for skin biopsy - Gentle IV hydration - Monitor CBC - Strict blood sugar monitoring - Pain control - GI and DVT prophylaxis Discharge Plan: Home Plan to discharge in: Greater than 2 days - Advance Directives Does patient have a Living Will: No Does patient have a Durable POA for Healthcare: No - Code Status/Comfort Care Code Status: Full Code Critical Care: No Time Spent Managing PTS Care (In Minutes): 35
--- NOTE | 2020-06-03 01:20 | P.DS ---
Discharge Date: 05/30/20 Primary Care Provider: Dr. Blackburn Disposition: ROUTINE DISCHARGE Discharge Condition: GOOD Reason for Admission: cellulitis failing previous treatment - Problems (1) Cellulitis of right lower extremity Onset Date: ~05/11/20 Status: Acute (2) Hypertension Status: Chronic Qualifiers: Hypertension type: essential hypertension Qualified Code(s): I10 - Essential (primary) hypertension Brief History of Present Illness: Mr. Albrecht is a 70 yo male with HTN here today for cellulitis worsening after treatment. He was admitted here from 05/11-05/13/20 for cellulitis of the R leg that initially improved during admission. He then completed a 7 day course of Bactrim outpatient. With his PCP, he was given another 10 day course of Bactrim and minocycline, but only completed 5 days. He has also been using topical mupirocin. Last night, he reports worsening swelling, tightness and erythema of the right calf. He denies systemic symptoms. There is diffuse poorly demarcated erythema and edema and warmth on the right calf below the knee with a well healing wound on medial calf and dry, cracking skin. Na 142, K 4, Cl 105, HCO3 30, BUN 18, Cr 1.07, Glu 96. Hgb/Hct 13.3/40.8, WBC 11, Plt 300. Ultrasound negative for DVT. Hospital Course: Patient was started on antibiotic therapy. Continue with oral antibiotic and discharged. However I did make him an appointment to see a forklift technician for a possible skin biopsy to rule out vasculitis. Patient will continue with antibiotics and we will not use steroids until seen by dermatology for biopsy. Follow up on June 02, 2020. Vital Signs/Physical Exam: Temp Pulse Resp BP Pulse Ox 97.0 F 59 16 126/60 99 06/03/20 01:19 06/03/20 01:19 06/03/20 01:19 06/03/20 01:19 06/03/20 01:19 General: Alert, In no apparent distress, Oriented x3 Laboratory Data at Discharge: WBC 9.30 K/uL (4.3-10.9) D 05/29/20 04:15 Hgb 12.5 g/dL (13.6-17.9) L 05/29/20 04:15 Hct 38.6 % (39.6-49.0) L 05/29/20 04:15 Plt Count 254 K/uL (152-406) 05/29/20 04:15 PT 13.9 SECONDS (9.5-12.5) H 05/28/20 20:05 INR 1.18 05/28/20 20:05 APTT 33.0 SECONDS (24.3-36.9) 05/28/20 20:05 Sodium 141 mmol/L (136-145) 05/29/20 04:15 Potassium 3.8 mmol/L (3.5-5.1) 05/29/20 04:15 BUN 13 mg/dL (7-18) 05/29/20 04:15 Creatinine 0.90 mg/dL (0.55-1.3) 05/29/20 04:15 Glucose 107 mg/dL (74-106) H 05/29/20 04:15 Home Medications: Amlodipine [Norvasc*] 2.5 mg PO DAILY 05/11/20 Atorvastatin Calcium [Lipitor*] 10 mg PO BEDTIME 05/11/20 Valsartan/Hydrochlorothiazide [Diovan Hct 80-12.5 mg Tablet] 1 each PO DAILY 05/11/20 Ciprofloxacin HCl [Cipro 500 MG Tablet] 500 mg PO BID #20 tab 05/30/20 Doxycycline Hyclate [Vibramycin] 100 mg PO BID #20 capsule 05/30/20 New Medications: Ciprofloxacin HCl [Cipro 500 MG Tablet] 500 mg PO BID #20 tab Doxycycline Hyclate [Vibramycin] 100 mg PO BID #20 capsule Diet: AHA Activity: Fall precautions Followup: [id number] [Primary Care Provider] - Time spent managing pt's care (in minutes): 35
== END 2020-05-30 17:40 | disposition home or self-care (01) | DRG 603 ==
LOC: ER 14:18 → ERHOLD 19:58 → UNDOADMIN 20:14 → 2ND 20:14
PROVIDERS: ADMIT Hospitalist; ATTEND Hospitalist
DX: L03.115 Cellulitis of right lower limb (principal); E78.5 Hyperlipidemia, unspecified; I10 Essential (primary) hypertension; Z91.018 Allergy to other foods; Z91.048 Other nonmedicinal substance allergy status; Z85.828 Personal history of other malignant neoplasm of skin; Z20.822 Contact with and (suspected) exposure to COVID-19
CPT/HCPCS: 36415; 80048; 83605; 84145; 85025; 85610; 85652; 85730; 86140; 87040; 93971; 96365; 96366; 96367; 99285; J1650; J2185; J3370; J7040; J7050; U0003